=== PATIENT | female | born 1940 | race Caucasian/White ===

== ENCOUNTER → 2023-07-18 13:11 | Outpatient (REF) | payer MEDICARE, OTHER, SELFPAY ==
[2023-07-21 02:26] LABS: Calprotectin, Fecal 116 ug/g (<=49)
== END ==
LOC: REG 13:11
PROVIDERS: ATTENDING PHYSICIAN Internal Medicine Gastroenterology; FAMILY PHYSICIAN Internal Medicine
DX: D64.9 Anemia, unspecified (principal); K59.1 Functional diarrhea
CPT/HCPCS: 83993; 87045; 87046; 87324; 87328; 87329; 87427; 87449; 89055

== ENCOUNTER → 2023-08-16 10:41 | Outpatient (REF) | payer MEDICARE, OTHER, SELFPAY ==
[2023-08-16 11:37] LABS: % Eosinophils 3.8 % (0-6); % Immature Granulocytes 0.3 % (0-0.5); % Lymphocytes 23.9 % (20.5-51.1); % Monocytes 6.7 % (1.7-9.3); % Neutrophils 64.3 % (42.2-75.2); Absolute Basophils 0.1 10^3/uL (0-0.2); Absolute Eosinophils 0.4 10^3/uL (0-0.7); Absolute Lymphocytes 2.8 10^3/uL (1.2-3.4); Absolute Monocytes 0.8 10^3/uL (0.1-0.6); Absolute Neutrophils 7.4 10^3/uL (1.4-6.5); Hematocrit 37.2 % (37.0-47.0); Mean Corp Hgb Conc. 32.3 g/dL (33.0-37.0); Mean Corpuscular Volume 86.7 fL (81.0-99.0); Mean Platelet Volume 9.3 fL (7.4-10.4); Nucleated Red Blood Cells % 0 %; Platelet Count 572 10^3/uL (130-400); Red Blood Cell Count 4.29 10^6/uL (4.20-5.40); Red Cell Dist. Width 15.8 % (11.5-14.5); White Blood Cell Count 11.5 10^3/uL (4.8-10.8)
[2023-08-16 12:00] LABS: ALT (SGPT) 13 U/L (0-35); AST (SGOT) 19 U/L (14-36); Albumin 4.1 g/dl (3.5-5.0); Alkaline Phosphatase 90 U/L (38-126); Blood Urea Nitrogen 8 mg/dl (7-17); Carbon Dioxide 25 mmol/L (22-30); Chloride 106 mmol/L (98-107); Glucose 103 mg/dl (70-99); Potassium 4.5 mmol/L (3.5-5.1); Sodium 140 mmol/L (135-145); Total Bilirubin 0.6 mg/dl (0.2-1.3); Total Cholesterol 277 mg/dl (50-199); Triglyceride 160 mg/dl (10-149); Very Low Density Lipoprotein 32 mg/dl (0-30); eGFR > 60.00
[2023-08-16 12:18] LABS: HDL Cholesterol 169 mg/dl; LDL Cholesterol, Calculated 76 mg/dl
[2023-08-16 12:23] LABS: Glycohemoglobin (HgbA1c) 6.7 % (4.0-5.6)
[2023-08-16 12:30] LABS: TSH Reflex To Free T4 2.12 uIU/ml (0.47-4.68)
== END ==
LOC: REG 10:41
PROVIDERS: ATTENDING PHYSICIAN Internal Medicine
DX: I10 Essential (primary) hypertension (principal); E11.59 Type 2 diabetes mellitus with other circulatory complications; E78.89 Other lipoprotein metabolism disorders; E78.00 Pure hypercholesterolemia, unspecified
CPT/HCPCS: 36415; 80053; 80061; 83036; 84443; 85025

== ENCOUNTER → 2023-08-25 07:54 | Outpatient (REF) | payer MEDICARE, OTHER, SELFPAY | LOC: RCS 07:54 | PROVIDERS: ATTENDING PHYSICIAN Registered Nurse; FAMILY PHYSICIAN Internal Medicine; REFERRING PHYSICIAN Physician Assistant | DX: R60.0 Localized edema (principal); I25.10 Atherosclerotic heart disease of native coronary artery without angina pectoris; I10 Essential (primary) hypertension; I35.1 Nonrheumatic aortic (valve) insufficiency | CPT/HCPCS: 93306 ==

== ENCOUNTER 2023-09-09 06:49 | Emergency (ER) | payer MEDICARE, OTHER, SELFPAY ==
[2023-09-09 06:49] VITALS: BMI 20.5
[2023-09-09 06:50] VITALS: BP 177/78
[2023-09-09 07:00] VITALS: BP 140/115
--- NOTE | 2023-09-09 07:25 | ED.MUSCINJ ---
HPI-Injury
General
Chief Complaint: Musculo-Skeletal Complaint
Source: patient
Exam Limitations: none
Time Seen by Provider: 09/09/23 07:08
History of Present Illness-Injury
Initial Injury comments:
83-year-old female presents with 3 nights worth of increasing pain to the right lateral hip into the thigh. She notes a chronic numbness into the foot. She has a history of right hip replacement done about 6 months ago. She denies any injury.
She took a tramadol which did not help at all. No perianal anesthesia. No bowel or bladder dysfunction fevers. She states she is concerned about a blood clot. She denies chest pain or shortness of breath. She is not anticoagulated
Past History
Past History
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
irritable bowel syndrome, osteoporosis, DVT,)
ED Past Surgical History: Bowel resection (colon resection for diverticulitis), Cardiac ( stent placement in March 2003), Gynecological (Hysterectomy) and Orthopedic (Left wrist plate in 2003)
Patient has exhibited threatening behavior?: No
PSI?: No
Social History
Tobacco: Non-smoker
Alcohol: Daily (Wine one glasses)
Drug: None
Personal:
Living: alone
Employment: Retired
Family History
Family History: Other (Noncontributory)
Phy Exam
Physical Exam
Physical Exam:
General: Well-appearing female no acute respiratory distress HEENT: Normocephalic atraumatic
Heart: Regular rate and rhythm no murmurs
Lungs: Clear no wheeze or rales
Musculoskeletal exam: Tenderness is noted over the anterior lateral right thigh approximately. No deformities. She has increased pain with internal/external rotation of the hip.
Vascular: 2+ dorsalis pedis pulse right foot
Neurologic: Good sensation light touch
Injury Course
Orders/Labs/Results
Orders:
Orders
09/09/23 07:24
CR Hip - RT w/wo Pel 2-3 Vw* Urgent
Comment:
Reason For Exam: pain
Include a pelvis x-ray?: Yes
Venous Doppler Lwr Ext Rt [US Periph Venous LOWER Ext RT] Urgent
Comment:
Reason For Exam: pain in leg
09/09/23 10:57
Hydrocodone 5/APAP 325 [Hawkins 5/325] 1 tablet PO NOW STA
Prednisone [Deltasone] 50 mg PO NOW STA
MDM/Problems Addressed
Differential Diagnosis Includes:
Patient presents with pain to the right hip and thigh. Differential could include strain versus bursitis versus fracture versus dislocation. Patient in bed DVT. Clinic suspicion of DVT is low however we will order ultrasound. X-ray of the pelvis
pending as well.
Chronic conditions affecting care: CAD and Previous abdomnial surgery
Acute Exacerbation and/or Progression of Chronic Illness:
Chronic numbness to the leg, consider radiculopathy
*Critical Care Note
Total Time (30-74mins, 75-104mins- exclusive of procedures): Not Applicable
Update Note
Update Note:
Ultrasound leg negative for DVT. X-ray of right hip negative. Suspect radiculopathy as source of pain. Patient was using tramadol at home without relief. Prescribed prednisone and a limited supply of hydrocodone for pain. She will be advised
follow-up with the family doctor.
ED Attending Note
-
Portions of this chart may have been created with voice recognition software.� Occasional wrong word or��sound alike� substitutions may have occurred due to the inherent limitations of voice recognition software.
Discharge Plan
Departure
Patient Disposition: Home (Routine Discharge)
Date of Disposition: 09/09/23
Time of Disposition: 11:40
Patient with high blood pressure during this ER visit?: No
Discharge Problem:
Acute lumbar radiculopathy
Instructions: Muscle and Bone Pain (DC)
Prescriptions:
New
prednisone 10 mg Tablet
See Rx Instructions .ROUTE .COMPLEX Qty: 30 0RF
Rx Instructions:
Take By Mouth:
40 mg daily x3 days, 30 mg daily x3 days,
20 mg daily x3 days, 10 mg daily x3 days.
hydrocodone-acetaminophen 5-325 mg tablet
1 tab PO Q8H PRN (Reason: Pain) Qty: 10 0RF
No Action
atorvastatin 40 MG tablet
40 mg PO QPM
aspirin 81 MG tablet,chewable
81 mg PO QPM
Hold Instructions: Resume on 06/12/22.
metoprolol tartrate 25 mg tablet
12.5 mg PO BID Qty: 60 6RF
Atrovent HFA 17 mcg/actuation HFA aerosol inhaler
2 puff inhalation BID
Saccharomyces boulardii 250 mg Capsule
250 mg PO DAILY Qty: 1 0RF
oxycodone 5 mg capsule
5 mg PO Q6H PRN (Reason: moderate-severe paibn) Qty: 1 0RF
Citrucel 500 mg tablet
500 mg PO BID PRN (Reason: constipation) Qty: 1 0RF
acetaminophen [Tylenol] 325 mg Tablet
650 mg PO QID Qty: 0 0RF
diazepam [Valium] 5 mg Tablet
2.5 mg PO BID PRN (Reason: Anxiety) Qty: 0 0RF
Rx Instructions:
do not take within 6 hours of opioid
Atrovent HFA 17 mcg/actuation Hfa Aerosol Inhaler
2 puff inhalation R BID@0800,1600 Qty: 12.9 0RF
docusate sodium 100 mg Capsule
100 mg PO DAILY Qty: 30 0RF
calcium polycarbophil [Fiber-Tabs] 625 mg Tablet
625 mg PO BIDPRN PRN (Reason: CONSTIPATION) Qty: 30 0RF
lidocaine 4 % Adhesive Patch,Medicated
1 patch topical DAILY Qty: 30 0RF
polyethylene glycol 3350 [HealthyLax] 17 gram Powder In Packet
17 g PO DAILY Qty: 30 0RF
pantoprazole 20 mg Tablet,Delayed Release (Dr/Ec)
20 mg PO DAILY Qty: 30 0RF
multivitamin with folic acid [Tab-A-Tiffany] 400 mcg Tablet
1 tab PO DAILY Qty: 30 0RF
acetaminophen [Pain Relief ES (acetaminophen)] 500 mg Tablet
1,000 mg PO TIDPRN PRN (Reason: mild pain) Qty: 30 0RF
Referrals:
Florentino Castaneda MD [Active] -
Margarita Key MD [Family Provider] -
Activity Restrictions/Additional Instructions:
Use medicine as directed. Please follow-up with your family doctor for further evaluation. Consider following up with pain management as listed on papers also
Interventions
Interventions:
*Risk Screen - Suicide Last Done: 09/09/23 06:51
*General Assessment Last Done: 09/09/23 06:50
*Neglect/Abuse Screening Last Done: 09/09/23 06:50
ED- Fall Risk Assessment Last Done: 09/09/23 06:51
ED-Musculoskeletal Assessment Last Done: 09/09/23 06:51
Discharge Date and Time
Print Language: TRINIDADIAN
[2023-09-09] MEDS: NORCO 5/325 1 TABLET PO (11:23)
[2023-09-09] MEDS: DELTASONE 50 MG PO (11:23)
[2023-09-09 11:52] VITALS: BP 115/71
== END 2023-09-09 12:36 | disposition home or self-care (01) ==
LOC: EMR 06:49
PROVIDERS: EMERGENCY PHYSICIAN Student in an Organized Health Care Education/Training Program; FAMILY PHYSICIAN Internal Medicine
DX: M54.16 Radiculopathy, lumbar region (principal); M79.604 Pain in right leg; I25.10 Atherosclerotic heart disease of native coronary artery without angina pectoris; E78.00 Pure hypercholesterolemia, unspecified; K57.92 Diverticulitis of intestine, part unspecified, without perforation or abscess without bleeding; K44.9 Diaphragmatic hernia without obstruction or gangrene; K58.9 Irritable bowel syndrome, unspecified; K90.0 Celiac disease; M81.0 Age-related osteoporosis without current pathological fracture; I25.2 Old myocardial infarction; Z79.82 Long term (current) use of aspirin; Z96.641 Presence of right artificial hip joint; Z95.5 Presence of coronary angioplasty implant and graft; Z87.01 Personal history of pneumonia (recurrent); Z86.718 Personal history of other venous thrombosis and embolism; Z98.0 Intestinal bypass and anastomosis status; Z88.1 Allergy status to other antibiotic agents; Z88.5 Allergy status to narcotic agent; Z88.0 Allergy status to penicillin; Z91.013 Allergy to seafood; Z88.8 Allergy status to other drugs, medicaments and biological substances; Z91.018 Allergy to other foods
CPT/HCPCS: 99284; 73502; 93971

== ENCOUNTER → 2023-11-16 08:44 | Outpatient (REF) | payer MEDICARE, OTHER, SELFPAY ==
[2023-11-16 09:56] LABS: % Basophils 1.4 % (0-2); % Eosinophils 3.3 % (0-6); % Immature Granulocytes 0.2 % (0-0.5); % Lymphocytes 24.3 % (20.5-51.1); % Monocytes 7.6 % (1.7-9.3); % Neutrophils 63.2 % (42.2-75.2); Absolute Basophils 0.1 10^3/uL (0-0.2); Absolute Eosinophils 0.3 10^3/uL (0-0.7); Absolute Lymphocytes 2.2 10^3/uL (1.2-3.4); Absolute Monocytes 0.7 10^3/uL (0.1-0.6); Absolute Neutrophils 5.8 10^3/uL (1.4-6.5); Hematocrit 41.2 % (37.0-47.0); Hemoglobin 13.4 g/dL (12.0-16.0); Mean Corp Hgb Conc. 32.5 g/dL (33.0-37.0); Mean Corpuscular Hgb 29.3 pg (27.0-31.0); Mean Platelet Volume 9.4 fL (7.4-10.4); Nucleated Red Blood Cells % 0 %; Platelet Count 582 10^3/uL (130-400); Red Blood Cell Count 4.58 10^6/uL (4.20-5.40); White Blood Cell Count 9.1 10^3/uL (4.8-10.8)
[2023-11-16 12:15] LABS: Glycohemoglobin (HgbA1c) 6.3 % (4.0-5.6)
[2023-11-16 13:02] LABS: ALT (SGPT) 16 U/L (0-35); AST (SGOT) 24 U/L (14-36); Albumin 4.6 g/dl (3.5-5.0); Alkaline Phosphatase 94 U/L (38-126); Blood Urea Nitrogen 12 mg/dl (7-17); Calcium 9.9 mg/dl (8.4-10.2); Carbon Dioxide 26 mmol/L (22-30); Chloride 103 mmol/L (98-107); Glucose 107 mg/dl (70-99); Potassium 4.8 mmol/L (3.5-5.1); Sodium 142 mmol/L (135-145); Total Bilirubin 0.6 mg/dl (0.2-1.3); Total Cholesterol 324 mg/dl (50-199); Total Protein 7.4 g/dl (6.3-8.2); Triglyceride 151 mg/dl (10-149); Very Low Density Lipoprotein 30 mg/dl (0-30); eGFR > 60.00
[2023-11-16 13:24] LABS: HDL Cholesterol 188 mg/dl; LDL Cholesterol, Calculated 106 mg/dl
== END ==
LOC: REG 08:44
PROVIDERS: ATTENDING PHYSICIAN Internal Medicine; OTHER PHYSICIAN Internal Medicine Cardiovascular Disease; REFERRING PHYSICIAN Internal Medicine Hematology & Oncology
DX: E78.5 Hyperlipidemia, unspecified (principal); R73.03 Prediabetes; I10 Essential (primary) hypertension; E11.59 Type 2 diabetes mellitus with other circulatory complications; E78.89 Other lipoprotein metabolism disorders; D72.9 Disorder of white blood cells, unspecified
CPT/HCPCS: 36415; 80053; 80061; 83036; 85025

== ENCOUNTER → 2023-11-23 16:46 | Outpatient (REF) | payer MEDICARE, OTHER, SELFPAY | LOC: PAVMRI 16:46 | PROVIDERS: ATTENDING PHYSICIAN Nurse Practitioner Acute Care; FAMILY PHYSICIAN Internal Medicine | DX: M21.371 Foot drop, right foot (principal) | CPT/HCPCS: 73721 ==

== ENCOUNTER → 2023-12-12 13:00 | Outpatient (REF) | payer MEDICARE, OTHER, SELFPAY ==
[2023-12-12 17:34] LABS: IgA 349 mg/dl (70-400)
[2023-12-14 10:47] LABS: tTG IgA Antibody 9.6 EU/ml (0-19); tTG IgG Antibody 12.3 EU/ml (0-19)
== END ==
LOC: REG 13:00
PROVIDERS: ATTENDING PHYSICIAN Nurse Practitioner Family; FAMILY PHYSICIAN Internal Medicine
DX: K90.0 Celiac disease (principal)
CPT/HCPCS: 36415; 82784; 83516; 86231

== ENCOUNTER → 2023-12-13 08:08 | Outpatient (REF) | payer MEDICARE, OTHER, SELFPAY | LOC: REG 08:08 | PROVIDERS: ATTENDING PHYSICIAN Nurse Practitioner Family; FAMILY PHYSICIAN Internal Medicine; REFERRING PHYSICIAN Internal Medicine Gastroenterology | DX: R19.7 Diarrhea, unspecified (principal) | CPT/HCPCS: 82653; 82705; 83993; 87045; 87046; 87328; 87329; 87427; 89055 ==

== ENCOUNTER 2023-12-31 09:18 | Emergency (ER) | payer MEDICARE, OTHER, SELFPAY ==
[2023-12-31 09:25] VITALS: BP 173/87
[2023-12-31 09:53] VITALS: BP 162/93
[2023-12-31 10:00] VITALS: BP 169/135
[2023-12-31 10:01] LABS: Urine Albumin Negative (Neg - Trace); Urine Bilirubin Negative (Negative); Urine Character Clear (Clear); Urine Color Yellow; Urine Glucose Negative (Negative); Urine Ketone Negative (Negative); Urine Leukocyte Trace (Negative); Urine Nitrite Negative (Negative); Urine Occult Blood Negative (Negative); Urine Urobilinogen Negative (Neg - 1+)
--- NOTE | 2023-12-31 10:03 | ED.GENMED ---
History of Present Illness
General
Chief Complaint: Abdominal Pain
Source: patient
Exam Limitations: none
Time Seen by Provider: 12/31/23 09:42
Nursing documentation reviewed up to this point in time: agreed with
History of Present Illness
History of Present Illness:
83 y/o F with h/o , CAD, VSD, celiac, divertic s/p partial colon resectino 12 years ago [facility]
here with 2-3 day sL sided abd pain radiating to L back
bloating, ocnstipation, firmer bm than usual
also with urinary frequency the past few days and mild discomfort
no h/o kidney stones/infection
usually moves bowels q2 dyas
hadn't had a normal BM in 4 so she tried senna and did go a little this morning, though she had more pain
nothing taken today for pain 08/21
occ gets sharp pain
Past History
Past History
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
irritable bowel syndrome, osteoporosis, DVT,)
ED Past Surgical History: Bowel resection (colon resection for diverticulitis), Cardiac ( stent placement in March 2003), Gynecological (Hysterectomy) and Orthopedic (Left wrist plate in 2003)
Patient has exhibited threatening behavior?: No
PSI?: No
Social History
Tobacco: Non-smoker
Alcohol: Daily (Wine one glasses)
Drug: None
Personal:
Living: alone
Employment: Retired
Family History
Family History: Other (Noncontributory)
Review of Systems
Review of Systems
Allergies reviewed?: Yes
All Other Systems: Not applicable
Phy Exam
Physical Exam
Physical Exam:
GENERAL: Alert , in no apparent distress
EYE: pupils equal and reactive
NECK: Supple
ENT: o/p clr, mmm.
CARDIAC: Regular rate and rhythm .
LUNGS: Clear breath sounds bilaterally, no acute respiratory distress, no wheezes/rales/rhonchi
ABDOMEN: Soft, mild distention, mild tenderness left upper quadrant, left flank, no r/g, no cvat, normal bowel sounds
NEUROLOGICAL: Alert and oriented, no focal neuro deficits
SKIN: Warm and dry, skin intact.
MUSCULOSKELETAL: No edema, well perfused. neg walter's sign
PSYCH: Normal and appropriate interaction.
Course
Orders/Labs/Results
Orders:
Orders
12/31/23 09:56
Urinalysis Reflex To Culture Urgent
Date Specimen was Collected: 12/31/23
Time Specimen was Collected: 09:53
Urine Microscopic Reflex Cult Urgent
12/31/23 09:59
Iohexol [Omnipaque] 50 ml .ROUTE .STK-MED ONE
12/31/23 10:01
Iohexol [Omnipaque] See Protocol PO NOW STA
Morphine Sulfate 2 mg IV NOW STA
12/31/23 10:02
CT Abd/pel W Iv And Oral Contr Urgent
Comment: colon resection 12 yr ago divertic
Reason For Exam: L abd pain, distension, constipation, back pain;
12/31/23 10:07
Complete Blood Count/With Diff Urgent
Comprehensive Metabolic Panel Urgent
Lipase Urgent
12/31/23 14:13
Dicyclomine HCl [Bentyl] 20 mg IM NOW STA
Sulfamethox./Trimethoprim Ds [Bactrim Ds 800 mg/160 mg] 1 tablet PO NOW STA
Abnormal Lab Results
12/31/23 12/31/23
09:56 10:07
WBC 13.1 H 10^3/uL
(4.8-10.8)
RDW 15.9 H %
(11.5-14.5)
Plt Count 569 H 10^3/uL
(130-400)
Abs Immat Gran (auto) 0.1 H 10^3/uL
(0-0.05)
Absolute Neuts (auto) 9.6 H 10^3/uL
(1.4-6.5)
Absolute Monos (auto) 0.8 H 10^3/uL
(0.1-0.6)
Immature Gran % 0.7 H %
(0-0.5)
Lymphocytes % 17.8 L %
(20.5-51.1)
Creatinine 0.5 L mg/dL
(0.6-1.0)
Glucose 119 H mg/dl
(70-99)
Leukocyte Esterase Rfl Trace A
(Negative)
Urine RBC 3-6 A /HPF
(0-2)
Urine Bacteria (Reflex) Few A
(Negative)
12/31/23 10:07
12/31/23 10:07
Vital Signs
Initial and Last Documented VS:
Initial Vital Signs
Temp Pulse Resp BP Pulse Ox
98.1 F 90 16 173/87 98
12/31/23 09:25 12/31/23 09:25 12/31/23 09:25 12/31/23 09:25 12/31/23 09:25
Last Documented Vital Signs
Temp Pulse Resp BP Pulse Ox
98.1 F 83 12 145/66 97
12/31/23 09:25 12/31/23 12:30 12/31/23 12:30 12/31/23 12:00 12/31/23 12:30
MDM/Problems Addressed
Differential Diagnosis Includes:
Diverticulitis, UTI, Theodore, kidney stone, bowel obstruction
MDM/Problems Addressed:
83-year-old female with history of a colon resection from diverticulitis in the past here with left lower quadrant pain that wraps around to her back. She is also had a slight increase in urinary frequency and a little bit of discomfort but
minimal. No fever or chills, no cough, no diarrhea. She still having stool output. On exam the patient did have some left upper quadrant tenderness and mild bloating but no significant CVA tenderness and does not appear toxic. She is afebrile.
Her white count is appreciated to be 13 with a left shift. Her lipase was normal. Her UA shows a few squamous cells but also white cells, trace leuks, few bacteria. Her CT scan does not show any significant findings to explain her pain. She does
have significant stool burden which I suppose could cause some left-sided upper abdominal pain into her back however after revisiting the idea of a urinary tract infection I felt it was worthwhile considering either waiting for antibiotics pending
the urine culture or initiating antibiotics. The more we talked she mentioned her urinary frequency, dysuria. With a leukocytosis with left shift was concern for missing an infection. I was also considering treating her for early diverticulitis
and she does have extensive diverticuli despite that she has not had any CT evidence of diverticulitis. She does have a lot of allergies making it difficult to choose antibiotic that would fit to treat both issues. Floris that Bactrim would
potentially be the best choice. She will be instructed to follow-up with her family doctor. Return precautions given
*Critical Care Note
Total Time (30-74mins, 75-104mins- exclusive of procedures): Not Applicable
ED Attending Note
-
Portions of this chart may have been created with voice recognition software.� Occasional wrong word or��sound alike� substitutions may have occurred due to the inherent limitations of voice recognition software.
Discharge Plan
Departure
Patient Disposition: Home (Routine Discharge)
Date of Disposition: 12/31/23
Time of Disposition: 14:25
Patient with high blood pressure during this ER visit?: Yes
Condition: Fair
Covid-19: Not Applicable
Discharge Problem:
Abdominal pain, Acute constipation, UTI (urinary tract infection)
Instructions: Clear Liquid Diet, Urinary tract infection - Discharge instructions, Abdominal Pain
Prescriptions:
New
sulfamethoxazole-trimethoprim [Bactrim DS] 800-160 mg tablet
1 tab PO BID Qty: 14 0RF
dicyclomine 20 mg tablet
20 mg PO BID PRN (Reason: abdominal pain) Qty: 10 0RF
No Action
atorvastatin 40 MG tablet
40 mg PO QPM
aspirin 81 MG tablet,chewable
81 mg PO QPM
metoprolol tartrate 25 mg tablet
12.5 mg PO BID Qty: 60 6RF
Atrovent HFA 17 mcg/actuation HFA aerosol inhaler
2 puff inhalation BID
Saccharomyces boulardii 250 mg Capsule
250 mg PO DAILY Qty: 1 0RF
oxycodone 5 mg capsule
5 mg PO Q6H PRN (Reason: moderate-severe paibn) Qty: 1 0RF
Citrucel 500 mg tablet
500 mg PO BID PRN (Reason: constipation) Qty: 1 0RF
acetaminophen [Tylenol] 325 mg Tablet
650 mg PO QID Qty: 0 0RF
diazepam [Valium] 5 mg Tablet
2.5 mg PO BID PRN (Reason: Anxiety) Qty: 0 0RF
Rx Instructions:
do not take within 6 hours of opioid
prednisone 10 mg Tablet
See Rx Instructions .ROUTE .COMPLEX Qty: 30 0RF
Rx Instructions:
Take By Mouth:
40 mg daily x3 days, 30 mg daily x3 days,
20 mg daily x3 days, 10 mg daily x3 days.
hydrocodone-acetaminophen 5-325 mg tablet
1 tab PO Q8H PRN (Reason: Pain) Qty: 10 0RF
Atrovent HFA 17 mcg/actuation Hfa Aerosol Inhaler
2 puff inhalation R BID@0800,1600 Qty: 12.9 0RF
docusate sodium 100 mg Capsule
100 mg PO DAILY Qty: 30 0RF
calcium polycarbophil [Fiber-Tabs] 625 mg Tablet
625 mg PO BIDPRN PRN (Reason: CONSTIPATION) Qty: 30 0RF
lidocaine 4 % Adhesive Patch,Medicated
1 patch topical DAILY Qty: 30 0RF
polyethylene glycol 3350 [HealthyLax] 17 gram Powder In Packet
17 g PO DAILY Qty: 30 0RF
pantoprazole 20 mg Tablet,Delayed Release (Dr/Ec)
20 mg PO DAILY Qty: 30 0RF
multivitamin with folic acid [Tab-A-Tiffany] 400 mcg Tablet
1 tab PO DAILY Qty: 30 0RF
acetaminophen [Pain Relief ES (acetaminophen)] 500 mg Tablet
1,000 mg PO TIDPRN PRN (Reason: mild pain) Qty: 30 0RF
Referrals:
Margarita Key MD [Family Provider] - Follow up in 2-3 days
Activity Restrictions/Additional Instructions:
Your CAT scan shows that you have a lot of stool in your colon but there were no other bowel findings like diverticulitis. You do have diverticulosis present. Your anastomosis looks good and there is no bowel obstruction or ileus. Not sure how to
explain your pain. It is possible that you have an early bladder infection, you have a slight white count elevation and some signs in your urine that there may be an infection. Given your new urinary symptoms we discussed treating you with Bactrim
twice a day for 7 days. Try clear liquid diet today and then advance as tolerated. You can also try MiraLAX twice a day for 2 or 3 days in a row to help you move your bowels. I gave you a dose of Bentyl which is a medication for crampy abdominal
pain. But just try Tylenol for pain at home. If you feel like the Bentyl did help you can try it twice a day as needed. Follow-up with your family doctor as well as your GI doctor. Do not hesitate to return for fever, vomiting, worsening
abdominal pain, inability to urinate or any concerns
Interventions
Interventions:
*Risk Screen - Suicide Last Done: 12/31/23 09:57
*General Assessment Last Done: 12/31/23 10:14
*Neglect/Abuse Screening Last Done: 12/31/23 09:57
ED- Fall Risk Assessment Last Done: 12/31/23 14:32
*ED COVID-19 Vaccine History Last Done: 12/31/23 10:14
*Nursing Disposition Last Done: 12/31/23 14:32
DU-Hfaixj-Mszbqjkdig Assessment Last Done: 12/31/23 09:53
Discharge Date and Time
Discharge Date/Time: 12/31/23 14:32
Print Language: IRISH
[2023-12-31] MEDS: OMNIPAQUE 50 ML PO (10:06)
[2023-12-31] MEDS: MORPHINE SULFATE 2 MG IV (10:11)
[2023-12-31 10:13] LABS: % Basophils 0.8 % (0-2); % Eosinophils 0.9 % (0-6); % Immature Granulocytes 0.7 % (0-0.5); % Lymphocytes 17.8 % (20.5-51.1); % Neutrophils 73.8 % (42.2-75.2); Absolute Basophils 0.1 10^3/uL (0-0.2); Absolute Eosinophils 0.1 10^3/uL (0-0.7); Absolute Immature Granulocytes 0.1 10^3/uL (0-0.05); Absolute Lymphocytes 2.3 10^3/uL (1.2-3.4); Absolute Monocytes 0.8 10^3/uL (0.1-0.6); Absolute Neutrophils 9.6 10^3/uL (1.4-6.5); Hematocrit 40.2 % (37.0-47.0); Hemoglobin 13.4 g/dL (12.0-16.0); Mean Corp Hgb Conc. 33.3 g/dL (33.0-37.0); Mean Corpuscular Hgb 28.7 pg (27.0-31.0); Mean Corpuscular Volume 86.1 fL (81.0-99.0); Nucleated Red Blood Cells % 0 %; Platelet Count 569 10^3/uL (130-400); Red Blood Cell Count 4.67 10^6/uL (4.20-5.40); Red Cell Dist. Width 15.9 % (11.5-14.5); White Blood Cell Count 13.1 10^3/uL (4.8-10.8)
[2023-12-31 10:20] LABS: Urine Bacteria Few (Negative)
[2023-12-31 11:00] VITALS: BP 170/74
[2023-12-31 11:27] LABS: ALT (SGPT) 28 U/L (0-35); AST (SGOT) 27 U/L (14-36); Albumin 4.3 g/dl (3.5-5.0); Alkaline Phosphatase 73 U/L (38-126); Blood Urea Nitrogen 10 mg/dl (7-17); Calcium 9.5 mg/dl (8.4-10.2); Carbon Dioxide 24 mmol/L (22-30); Chloride 104 mmol/L (98-107); Estimated Creatinine Clearance 52 ml/min; Glucose 119 mg/dl (70-99); Potassium 4.4 mmol/L (3.5-5.1); Sodium 140 mmol/L (135-145); Total Bilirubin 0.4 mg/dl (0.2-1.3); Total Protein 7.4 g/dl (6.3-8.2); eGFR > 60.00
[2023-12-31 11:48] LABS: Lipase 63 U/L (23-300)
[2023-12-31 12:00] VITALS: BP 145/66
[2023-12-31] MEDS: BACTRIM DS 800 MG/160 MG 1 TABLET PO (14:18)
[2023-12-31] MEDS: BENTYL 20 MG IM (14:18)
== END 2023-12-31 14:32 | disposition home or self-care (01) ==
LOC: EMR 09:18
PROVIDERS: Physician Assistant; EMERGENCY PHYSICIAN Emergency Medicine; FAMILY PHYSICIAN Internal Medicine
DX: K59.09 Other constipation (principal); N39.0 Urinary tract infection, site not specified; E78.00 Pure hypercholesterolemia, unspecified; I25.10 Atherosclerotic heart disease of native coronary artery without angina pectoris; I25.2 Old myocardial infarction; Z86.718 Personal history of other venous thrombosis and embolism; Z90.49 Acquired absence of other specified parts of digestive tract
CPT/HCPCS: 96374; 96372; 99284; 74177; 80053; 81003; 81015; 83690; 85025; Q9967

== ENCOUNTER 2024-01-04 05:18 | Emergency (ER) | payer MEDICARE, OTHER, SELFPAY ==
[2024-01-04 05:20] VITALS: BP 157/74; BMI 22.2
[2024-01-04 05:47] LABS: % Eosinophils 1.4 % (0-6); % Immature Granulocytes 0.4 % (0-0.5); % Lymphocytes 24.3 % (20.5-51.1); % Neutrophils 64.9 % (42.2-75.2); Absolute Basophils 0.1 10^3/uL (0-0.2); Absolute Eosinophils 0.1 10^3/uL (0-0.7); Absolute Lymphocytes 2.4 10^3/uL (1.2-3.4); Absolute Monocytes 0.8 10^3/uL (0.1-0.6); Absolute Neutrophils 6.3 10^3/uL (1.4-6.5); Hematocrit 39.6 % (37.0-47.0); Hemoglobin 13.3 g/dL (12.0-16.0); Mean Corp Hgb Conc. 33.6 g/dL (33.0-37.0); Mean Corpuscular Hgb 28.7 pg (27.0-31.0); Mean Corpuscular Volume 85.5 fL (81.0-99.0); Mean Platelet Volume 8.8 fL (7.4-10.4); Nucleated Red Blood Cells % 0 %; Platelet Count 526 10^3/uL (130-400); Red Blood Cell Count 4.63 10^6/uL (4.20-5.40); Red Cell Dist. Width 15.6 % (11.5-14.5); White Blood Cell Count 9.7 10^3/uL (4.8-10.8)
[2024-01-04 06:00] VITALS: BP 145/65
[2024-01-04] MEDS: NSS 1000 IV (06:30)
[2024-01-04] MEDS: MORPHINE SULFATE 4 MG IV ×2 (06:31→08:41)
--- NOTE | 2024-01-04 06:37 | ED.GENMED ---
History of Present Illness
General
Chief Complaint: Abdominal Pain
Time Seen by Provider: 01/04/24 06:06
History of Present Illness
History of Present Illness:
83-year-old female with history of CAD status post stenting, hypertension, hyperlipidemia, history of diverticulitis requiring bowel resection presenting to the emergency department for worsening abdominal pain. Patient reports for the past week
she has had left sided abdominal pain with radiation to her back. She denies associated nausea or vomiting. She reports that she has been having normal bowel movements. Denies any pain with urination. Reports that she was seen in the hospital on
Tuesday, 12/30. On review of EMR, patient had normal CT abdominal imaging, without clear etiology of patient's pain. Patient was started on Bentyl. Notes that she has not been taking this medication. CT scan did show that she was constipated,
however again patient notes that she has been having normal bowel movements. She was thought to maybe have a urinary tract infection, was started on Bactrim, however notes that since she is not having urinary symptoms, has not been taking it.
Denies fever. Denies additional acute medical complaints.
Past History
Past History
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
irritable bowel syndrome, osteoporosis, DVT,)
ED Past Surgical History: Bowel resection (colon resection for diverticulitis), Cardiac ( stent placement in March 2003), Gynecological (Hysterectomy) and Orthopedic (Left wrist plate in 2003)
Patient has exhibited threatening behavior?: No
PSI?: No
Social History
Tobacco: Non-smoker
Alcohol: Daily (Wine one glasses)
Drug: None
Personal:
Living: alone
Employment: Retired
Family History
Family History: Other (Noncontributory)
Phy Exam
Physical Exam
Physical Exam:
General: Well-appearing, no clinical signs of dehydration, nontoxic and in no acute distress
HEENT: protecting airway
Neck: appears supple
CV: Normal heart rate, regular rhythm
Resp: No accessory muscle use, no increased work of breathing
Abd: Soft and non-distended, focal tenderness to the left lower quadrant without rebound or guarding. No CVA tenderness
Extremities: No deformities, no swelling
Neuro: alert, no focal neurologic deficit
: deferred
Rectal: deferred
Psych: Normal affect
Skin: Intact
Course
Orders/Labs/Results
Orders:
Orders
01/04/24 05:34
Complete Blood Count/With Diff Urgent
01/04/24 06:19
0.9% Sodium Chloride 1000 ml [Nss] 1,000 ml IV BOLUS
Morphine Sulfate 4 mg IV NOW STA
01/04/24 06:20
CT Abd/pelvis W Iv Cont Urgent
Comment:
Reason For Exam: worsening LLQ pain
01/04/24 06:40
Comprehensive Metabolic Panel Urgent
Comment: REDRAW
Lipase Urgent
01/04/24 07:39
Urinalysis Reflex To Culture Urgent
Date Specimen was Collected: 01/04/24
Time Specimen was Collected: 07:38
Urine Microscopic Reflex Cult Urgent
01/04/24 08:12
Morphine Sulfate 4 mg IV NOW STA
01/04/24 09:24
EKG [Electrocardiogram (*1)] Urgent
Reason for Study: Abdominal Pain
EKG- Treatment ONCE
Ketorolac [Toradol] 30 mg IV NOW STA
Abnormal Lab Results
01/04/24 01/04/24 01/04/24
05:34 06:40 07:39
RDW 15.6 H %
(11.5-14.5)
Plt Count 526 H 10^3/uL
(130-400)
Absolute Monos (auto) 0.8 H 10^3/uL
(0.1-0.6)
Carbon Dioxide 21 L mmol/L
(22-30)
Glucose 120 H mg/dl
(70-99)
Leukocyte Esterase Rfl Trace A
(Negative)
01/04/24 05:34
01/04/24 06:40
Vital Signs
Initial and Last Documented VS:
Initial Vital Signs
Temp Pulse Resp BP Pulse Ox
98.0 F 77 18 157/74 98
01/04/24 05:20 01/04/24 05:20 01/04/24 05:20 01/04/24 05:20 01/04/24 05:20
Last Documented Vital Signs
Temp Pulse Resp BP Pulse Ox
98.0 F 85 16 153/78 98
01/04/24 05:20 01/04/24 07:27 01/04/24 07:27 01/04/24 08:42 01/04/24 07:27
MDM/Problems Addressed
MDM/Problems Addressed:
83-year-old female with history of prior diverticulitis requiring bowel resection presenting to the emergency department for worsening abdominal pain. Vital signs on arrival significant for mild hypertension.
On exam patient is well-appearing, no acute distress, nontoxic. She does have reproducible tenderness to the left lower quadrant without rebound or guarding. On review of EMR, imaging and laboratory analysis reviewed from prior visit 12/30. CT at
that time without clear etiology to patient's pain. She notes that her pain has been worsening. Given her prior history of bowel issues, will repeat CT imaging to ensure no interval change or development of bowel inflammation or infection.
Laboratory analysis repeated prior to my assessment. Patient had previously had a leukocytosis which is since resolved. Morphine administered for pain
09:25 -patient's labs are unremarkable. No leukocytosis. CT of the abdomen and pelvis without findings to explain patient's pain. Does note gallstones with sludge, however patient without right-sided abdominal pain. Urine without sign of
infection. Patient reports still having.. Patient offered admission for intractable pain, would prefer to go home. Will prescribe Toradol. Patient also notes that she has had 2 heart attacks in the past, which were received only by nausea.
Given her history, will screen with EKG. Otherwise feel stable for discharge. Advise close interval follow-up with her primary care doctor. Return precautions discussed.
*Critical Care Note
Total Time (30-74mins, 75-104mins- exclusive of procedures): Not Applicable
ED Attending Note
-
Portions of this chart may have been created with voice recognition software.� Occasional wrong word or��sound alike� substitutions may have occurred due to the inherent limitations of voice recognition software.
Discharge Plan
Departure
Patient Disposition: Home (Routine Discharge)
Date of Disposition: 01/04/24
Time of Disposition: 10:16
Patient with high blood pressure during this ER visit?: No
Condition: Good
Discharge Problem:
Abdominal pain
Instructions: Abdominal Pain
Prescriptions:
New
ketorolac 10 mg tablet
10 mg PO Q8H 4 Days Qty: 12 0RF
No Action
atorvastatin 40 MG tablet
40 mg PO QPM
aspirin 81 MG tablet,chewable
81 mg PO QPM
metoprolol tartrate 25 mg tablet
12.5 mg PO BID Qty: 60 6RF
Atrovent HFA 17 mcg/actuation HFA aerosol inhaler
2 puff inhalation BID
Saccharomyces boulardii 250 mg Capsule
250 mg PO DAILY Qty: 1 0RF
oxycodone 5 mg capsule
5 mg PO Q6H PRN (Reason: moderate-severe paibn) Qty: 1 0RF
Citrucel 500 mg tablet
500 mg PO BID PRN (Reason: constipation) Qty: 1 0RF
acetaminophen [Tylenol] 325 mg Tablet
650 mg PO QID Qty: 0 0RF
diazepam [Valium] 5 mg Tablet
2.5 mg PO BID PRN (Reason: Anxiety) Qty: 0 0RF
Rx Instructions:
do not take within 6 hours of opioid
prednisone 10 mg Tablet
See Rx Instructions .ROUTE .COMPLEX Qty: 30 0RF
Rx Instructions:
Take By Mouth:
40 mg daily x3 days, 30 mg daily x3 days,
20 mg daily x3 days, 10 mg daily x3 days.
hydrocodone-acetaminophen 5-325 mg tablet
1 tab PO Q8H PRN (Reason: Pain) Qty: 10 0RF
sulfamethoxazole-trimethoprim [Bactrim DS] 800-160 mg tablet
1 tab PO BID Qty: 14 0RF
dicyclomine 20 mg tablet
20 mg PO BID PRN (Reason: abdominal pain) Qty: 10 0RF
Atrovent HFA 17 mcg/actuation Hfa Aerosol Inhaler
2 puff inhalation R BID@0800,1600 Qty: 12.9 0RF
docusate sodium 100 mg Capsule
100 mg PO DAILY Qty: 30 0RF
calcium polycarbophil [Fiber-Tabs] 625 mg Tablet
625 mg PO BIDPRN PRN (Reason: CONSTIPATION) Qty: 30 0RF
lidocaine 4 % Adhesive Patch,Medicated
1 patch topical DAILY Qty: 30 0RF
polyethylene glycol 3350 [HealthyLax] 17 gram Powder In Packet
17 g PO DAILY Qty: 30 0RF
pantoprazole 20 mg Tablet,Delayed Release (Dr/Ec)
20 mg PO DAILY Qty: 30 0RF
multivitamin with folic acid [Tab-A-Tiffany] 400 mcg Tablet
1 tab PO DAILY Qty: 30 0RF
acetaminophen [Pain Relief ES (acetaminophen)] 500 mg Tablet
1,000 mg PO TIDPRN PRN (Reason: mild pain) Qty: 30 0RF
Referrals:
Margarita Key MD [Family Provider] -
Activity Restrictions/Additional Instructions:
You were seen in the emergency department for abdominal pain
You were found to have normal laboratory analysis, urinalysis and CT abdominal imaging. A CT of your abdomen did show gallstones, however unclear etiology of your left-sided pain. Please continue to follow-up with your primary care doctor. You
were prescribed Toradol for pain. Do not use this medication with ibuprofen or naproxen
Return to the emergency department for any worsening of your symptoms, or any development of chest pain, difficulty breathing, abdominal pain with persistent vomiting and inability to tolerate food or liquid by mouth (concern for dehydration),
weakness, headache or confusion, fever greater than 100.4, or any additional symptoms that are concerning to you.
Thank you for choosing [facility].
Interventions
Interventions:
*Risk Screen - Suicide Last Done: 01/04/24 05:20
*General Assessment Last Done: 01/04/24 05:20
*Neglect/Abuse Screening Last Done: 01/04/24 05:20
*ED COVID-19 Vaccine History Last Done: 01/04/24 05:20
GS-Qxliim-Dpldqymrat Assessment Last Done: 01/04/24 05:25
Discharge Date and Time
Print Language: PORTUGUESE
[2024-01-04 06:59] LABS: ALT (SGPT) 23 U/L (0-35); AST (SGOT) 23 U/L (14-36); Albumin 3.8 g/dl (3.5-5.0); Alkaline Phosphatase 67 U/L (38-126); Blood Urea Nitrogen 11 mg/dl (7-17); Carbon Dioxide 21 mmol/L (22-30); Chloride 106 mmol/L (98-107); Estimated Creatinine Clearance 55 ml/min; Glucose 120 mg/dl (70-99); Lipase 135 U/L (23-300); Potassium 4.3 mmol/L (3.5-5.1); Sodium 137 mmol/L (135-145); Total Bilirubin 0.4 mg/dl (0.2-1.3); Total Protein 6.4 g/dl (6.3-8.2); eGFR > 60.00
[2024-01-04 07:00] VITALS: BP 145/64
[2024-01-04 07:58] LABS: Urine Albumin Negative (Neg - Trace); Urine Bilirubin Negative (Negative); Urine Character Clear (Clear); Urine Color Yellow; Urine Glucose Negative (Negative); Urine Ketone Negative (Negative); Urine Leukocyte Trace (Negative); Urine Nitrite Negative (Negative); Urine Occult Blood Negative (Negative); Urine Urobilinogen Negative (Neg - 1+)
[2024-01-04 08:42] VITALS: BP 153/78
[2024-01-04 08:58] LABS: Urine Mucus Few
[2024-01-04 08:59] LABS: Urine Amorphous Seen; Urine Hyaline Cast 0-2 /LPF (0-2); Urine Squamous Cell 0-2 /LPF (Few); Urine Urothelial Cell 0-2 /LPF (FEW)
[2024-01-04 09:01] LABS: Urine Red Blood Cell 0-2 /HPF (0-2)
[2024-01-04] MEDS: TORADOL 30 MG IV (09:36)
[2024-01-04 10:52] VITALS: BP 136/74
== END 2024-01-04 10:54 | disposition home or self-care (01) ==
LOC: EMR 05:18
PROVIDERS: Student in an Organized Health Care Education/Training Program; EMERGENCY PHYSICIAN Student in an Organized Health Care Education/Training Program; FAMILY PHYSICIAN Internal Medicine
DX: R10.9 Unspecified abdominal pain (principal); I10 Essential (primary) hypertension; E78.00 Pure hypercholesterolemia, unspecified; K57.30 Diverticulosis of large intestine without perforation or abscess without bleeding
CPT/HCPCS: 99285; 96374; 96375; 96376; 96361; 74177; 80053; 81003; 81015; 83690; 85025; 93005; Q9967

== ENCOUNTER 2024-01-08 14:08 | Inpatient (IN) | payer MEDICARE, OTHER, SELFPAY ==
[2024-01-06 09:57] VITALS: BP 156/81
--- NOTE | 2024-01-06 10:16 | ED.GENMED ---
History of Present Illness
General
Chief Complaint: Abdominal Pain
Time Seen by Provider: 01/06/24 10:16
History of Present Illness
History of Present Illness:
TIME OF INITIAL ENCOUNTER: 10:15 AM
HPI:
The patient returns due to ongoing abdominal pain. She was seen here 12/31/2023 and 01/04/2024. She called her primary care doctor who told her to come back in here for more testing. The patient has intermittent pain. Although she was concerned
about the possibility of a 'blockage' she has no vomiting and only minimal nausea and no 'blockages' were seen on CTs.
EXAM:
GENERAL: Well appearing but in mild distress
HEENT: Moist oral mucosa
CARDIOVASCULAR: No murmurs, normal heart rate, regular rhythm, No chest wall tenderness
PULMONARY: No respiratory distress, breath sounds are clear and equal
ABDOMEN: Soft with no peritoneal signs, mild left-sided abdominal tenderness
NEUROLOGIC: Excellent strength all extremities, no coordination deficits
PSYCHIATRIC: Appropriate mental status, normal insight and judgement
EXTREMITIES: Nontender, no edema, moves all extremities equally
SKIN: No rash, no lesions
NUMBER AND COMPLEXITY OF PROBLEMS ADDRESSED AT THE ENCOUNTER
� Chronic conditions affecting care: CAD, high blood pressure, diverticulitis
� Acute Exacerbation and/or Progression of Chronic Illness: This is a new ongoing problem for the past 2 weeks
� Differential Diagnosis includes: Diverticulitis, colitis, musculoskeletal etiology,
AMOUNT AND/OR COMPLEXITY OF DATA TO BE REVIEWED AND ANALYZED
� I performed an independent evaluation of and my interpretation is:
EKG: Sinus 90, left axis deviation, inferior Q waves
CT:
X-rays:
Laboratory Studies: White count 12.6, hemoglobin 13.8, chemistries unremarkable including LFTs and lipase, urinalysis shows 2+ leukocyte esterase however number of white cells is low
Other:
� Review of other/old records: On 12/30, white count was 13.1, on 01/03 white count was 9.7. On 12/30, CT scan showed large volume of feces. 01/03, CT showed diverticulosis with no inflammation; gallstones were noted.
Urinalysis from the other day showed no sign of infection.
� Clinical information was obtained by an independent historian: None needed
� Prescriptions/Medications Considered but not given:
� Further testing considered but not performed: Considered CT of the abdomen pelvis however the patient has already had 2 CAT scans in the recent past.
RISK OF COMPLICATIONS AND/OR MORBIDITY OR MORTALITY OF PATIENT MANAGEMENT
� Social determinants of health affecting care: Lives at home
� Discussion with other providers: Discussed case with Dr. Julian
� Escalation of care including admission/observation vs risk of discharge considered: The patient returns a third time with left-sided abdominal discomfort for the past 2 weeks. She has had 2 CTs in the recent past. The first
of which showed increase stool but since then she has been having diarrhea. Dr. Julian suggested checking abdominal x-ray to evaluate stool burden however the patient refused. The patient feels that she needs a colonoscopy. I spoke to
Eliel again. She apparently had a colonoscopy with Dr. Queen in 2021. I spoke to the hospitalist regarding possible further observation however there has been no clear indication to keep her in the hospital. Hospitalist request ED GI
consultation. We did try lidocaine patch which has not really helped.
ANY OTHER UPDATES:
1:15 PM: Lidocaine patch has not helped�will add low-dose morphine.
1:50 PM: Patient states pain persists however she appears fairly comfortable. Awaiting GI evaluation.
Past History
Past History
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
irritable bowel syndrome, osteoporosis, DVT,)
ED Past Surgical History: Bowel resection (colon resection for diverticulitis), Cardiac ( stent placement in March 2003), Gynecological (Hysterectomy) and Orthopedic (Left wrist plate in 2003)
Patient has exhibited threatening behavior?: No
PSI?: No
Social History
Tobacco: Non-smoker
Alcohol: Daily (Wine one glasses)
Drug: None
Personal:
Living: alone
Employment: Retired
Family History
Family History: Other (Noncontributory)
Phy Exam
Physical Exam
Physical Exam:
See HPI
Course
Orders/Labs/Results
Orders:
Orders
01/06/24 10:00
Electrocardiogram (*1) Urgent
Reason for Study: Abdominal Pain
EKG- Treatment ONCE
01/06/24 10:11
Complete Blood Count/With Diff Urgent
Comprehensive Metabolic Panel Urgent
Lipase Urgent
Urinalysis Reflex To Culture Urgent
Date Specimen was Collected: 01/06/24
Time Specimen was Collected: 10:01
Urine Microscopic Reflex Cult Urgent
Urine Culture Urgent
KARISHMA Source: U
Specimen Description:
Date Specimen was Collected: 01/06/24
Time Specimen was Collected: 10:01
01/06/24 10:59
Lidocaine [Lidocaine 4% Patch] 1 patch TOPICAL NOW STA
Apply Lidocaine patch(s) to:: left flank
01/06/24 12:44
STOOL [C difficile Antigen & Toxins] Urgent
KARISHMA Source: Feces/Stool
Specimen Description:
Date Specimen was Collected: 01/07/24
Time Specimen was Collected: 10:20
Stool Culture Urgent
KARISHMA Source: Feces/Stool
Specimen Description:
Date Specimen was Collected: 01/07/24
Time Specimen was Collected: 10:20
01/06/24 13:04
Morphine Sulfate 2 mg IV NOW STA
Ondansetron Injectable [Zofran] 4 mg IV NOW STA
01/06/24 14:42
Obstruct Series W/PA Chest [CR Obstruct Series W/pa Chest] Routine
Comment:
Reason For Exam: constipation/abdominal pain
01/06/24 14:54
Admit/Transfer Patient As Directed
Co-Sign Provider:
Level of Care: Observation services
Assign to:: Medical/Surgical
Physician / Group: [email or web address]
Diagnosis: acute abdominal pain, constipation
01/06/24 14:58
Code Status As Directed
Resuscitation Status: Full Code
01/06/24 Dinner
Clear Liquid
At Your Request: Full Participation
Clear Liquid
At Your Request: Full Participation
Comment: ADAT
01/06/24 16:45
Ketorolac [Toradol] 10 mg IV Q6HPRN PRN
01/06/24 17:34
0.9% Sodium Chloride 1000 ml [Nss] 1,000 ml IV 60 mls/hr
Acetaminophen [Tylenol] 650 mg PO Q4HPRN PRN
Bisacodyl [Dulcolax] 10 mg RECTAL [id number] PRN
Docusate W/Senna [Senokot-S] 1 tablet PO BIDPRN PRN
Ipratropium/Albuterol Sulfate [Duoneb] 3 ml INH R Q4HPRN PRN
Ondansetron Injectable [Zofran] 4 mg IV Q6HPRN PRN
Polyethylene Glycol Powder [Miralax] 17 grams PO DAILYPRN PRN
01/06/24 17:34
GASTROINTESTINAL CONSULT Routine
Consulting Provider: Ingrid Julian
Was physician already notified: Yes
Reason for consult: abdominal pain and constipation
Activity As Directed
Activity Level: With Assistance
Pneumatic Compression Sleeves As Directed
Type: Knee high
Vital Signs As Directed
Frequency: Per unit guidelines
Weight As Directed
Frequency: Daily
DX Deep Vein Thrombosis Video Routine
01/06/24 18:39
DIETARY CONSULT Routine
Reason for Consult: weight loss, poor appetite
Pt Screening Request from Mesha Routine
01/06/24 19:00
Flush (0.9% Sodium Chloride) [Flush (Nss)] See Dose Instructions IV PER PROTOCOL
01/06/24 21:12
Morphine Sulfate 1 mg IV NOW STA
01/07/24 Breakfast
Full Liquids
At Your Request: Full Participation
Full Liquid: Gluten Free
01/07/24 06:56
Basic Metabolic Panel IN AM
Complete Blood Count/No Diff IN AM
01/07/24 08:00
Magnesium Citrate [Citroma] 300 ml PO ONCE ONE
01/07/24 15:00
Pantoprazole [Protonix] 40 mg PO DAILY
01/08/24 00:24
Tramadol HCl [Ultram] 50 mg PO NOW STA
01/08/24 06:56
Basic Metabolic Panel IN AM
Complete Blood Count/No Diff IN AM
Magnesium IN AM
Phosphorus IN AM
01/08/24 08:00
Polyethylene Glycol Powder [Miralax] 17 grams PO DAILY
01/08/24 09:58
Change in Level of Care [Level of Care Change] As Directed
Level of Care: Inpatient admission
Reason for Hospitalization: severe intermittent abd pain possibly due to severe constipation
Expected length of stay greater than two midnights?: Yes
ELOS- Estimated Length of Stay in days: 2
I certify the patient meets the requirements for IP care: Yes
01/09/24 07:13
Basic Metabolic Panel IN AM
Magnesium IN AM
Phosphorus IN AM
01/10/24 06:00
Basic Metabolic Panel IN AM
Complete Blood Count/No Diff IN AM
Magnesium IN AM
Phosphorus IN AM
01/11/24 06:00
Basic Metabolic Panel IN AM
Complete Blood Count/No Diff IN AM
Magnesium IN AM
Phosphorus IN AM
01/12/24 06:00
Basic Metabolic Panel IN AM
Complete Blood Count/No Diff IN AM
Magnesium IN AM
Phosphorus IN AM
01/13/24 06:00
Basic Metabolic Panel IN AM
Complete Blood Count/No Diff IN AM
Magnesium IN AM
Phosphorus IN AM
01/14/24 06:00
Basic Metabolic Panel IN AM
Complete Blood Count/No Diff IN AM
Magnesium IN AM
Phosphorus IN AM
Abnormal Lab Results
01/06/24 01/07/24 01/08/24
10:11 06:56 06:56
WBC 12.6 H 10^3/uL 11.5 H 10^3/uL
(4.8-10.8) (4.8-10.8)
RDW 15.8 H % 15.6 H % 15.1 H %
(11.5-14.5) (11.5-14.5) (11.5-14.5)
Plt Count 552 H 10^3/uL 506 H 10^3/uL 405 H 10^3/uL
(130-400) (130-400) (130-400)
Abs Immat Gran (auto) 0.1 H 10^3/uL
(0-0.05)
Absolute Neuts (auto) 9.2 H 10^3/uL
(1.4-6.5)
Absolute Monos (auto) 0.8 H 10^3/uL
(0.1-0.6)
Lymphocytes % 18.8 L %
(20.5-51.1)
Sodium 134 L mmol/L 133 L mmol/L
(135-145) (135-145)
Carbon Dioxide 18 L mmol/L
(22-30)
Creatinine 0.5 L mg/dL 0.5 L mg/dL
(0.6-1.0) (0.6-1.0)
Glucose 117 H mg/dl 111 H mg/dl 114 H mg/dl
(70-99) (70-99) (70-99)
Magnesium 2.5 H mg/dl
(1.6-2.3)
Urine Ketones Trace A
(Negative)
Urine Bilirubin 1+ A
(Negative)
Leukocyte Esterase Rfl 2+ A
(Negative)
Urine Bacteria (Reflex) Few A
(Negative)
01/08/24 06:56
01/08/24 06:56
Vital Signs
Initial and Last Documented VS:
Initial Vital Signs
Temp Pulse Resp BP Pulse Ox
97.7 F 95 16 156/81 98
01/06/24 09:57 01/06/24 09:57 01/06/24 09:57 01/06/24 09:57 01/06/24 09:57
Last Documented Vital Signs
Temp Pulse Resp BP Pulse Ox
98.1 F 86 18 96/51 96
01/09/24 23:32 01/09/24 23:32 01/09/24 23:32 01/09/24 23:32 01/09/24 23:32
*Critical Care Note
Total Time (30-74mins, 75-104mins- exclusive of procedures): Not Applicable
ED Attending Note
-
Portions of this chart may have been created with voice recognition software.� Occasional wrong word or��sound alike� substitutions may have occurred due to the inherent limitations of voice recognition software.
Discharge Plan
Departure
Patient Disposition: Admit
Presentation/result/management discussed w/ accepting MD/DO: Hospitalist
Discharge Problem:
Abdominal pain
Interventions
Interventions:
*Risk Screen - Suicide Last Done: 01/06/24 09:57
*General Assessment Last Done: 01/06/24 11:23
*Neglect/Abuse Screening Last Done: 01/06/24 09:57
ED- Fall Risk Assessment Last Done: 01/06/24 13:47
*ED COVID-19 Vaccine History Last Done: 01/06/24 11:23
*Nursing Disposition Last Done: 01/06/24 17:11
XQ-Kxzvph-Pqvqauwmes Assessment Last Done: 01/06/24 11:23
Discharge Date and Time
Discharge Date/Time: 01/06/24 17:12
[2024-01-06 10:22] LABS: % Basophils 0.7 % (0-2); % Immature Granulocytes 0.5 % (0-0.5); % Lymphocytes 18.8 % (20.5-51.1); Absolute Basophils 0.1 10^3/uL (0-0.2); Absolute Eosinophils 0.1 10^3/uL (0-0.7); Absolute Immature Granulocytes 0.1 10^3/uL (0-0.05); Absolute Lymphocytes 2.4 10^3/uL (1.2-3.4); Absolute Monocytes 0.8 10^3/uL (0.1-0.6); Absolute Neutrophils 9.2 10^3/uL (1.4-6.5); Hematocrit 41.6 % (37.0-47.0); Hemoglobin 13.8 g/dL (12.0-16.0); Mean Corp Hgb Conc. 33.2 g/dL (33.0-37.0); Mean Corpuscular Hgb 28.8 pg (27.0-31.0); Mean Corpuscular Volume 86.7 fL (81.0-99.0); Mean Platelet Volume 8.7 fL (7.4-10.4); Nucleated Red Blood Cells % 0 %; Platelet Count 552 10^3/uL (130-400); Red Cell Dist. Width 15.8 % (11.5-14.5); White Blood Cell Count 12.6 10^3/uL (4.8-10.8)
[2024-01-06 10:23] LABS: Urine Albumin Trace (Neg - Trace); Urine Bilirubin 1+ (Negative); Urine Character Clear (Clear); Urine Color Yellow; Urine Glucose Negative (Negative); Urine Ketone Trace (Negative); Urine Leukocyte 2+ (Negative); Urine Nitrite Negative (Negative); Urine Occult Blood Negative (Negative); Urine Specific Gravity 1.015 (<1.030); Urine Urobilinogen Negative (Neg - 1+)
[2024-01-06 10:36] LABS: ALT (SGPT) 25 U/L (0-35); AST (SGOT) 22 U/L (14-36); Albumin 4.5 g/dl (3.5-5.0); Alkaline Phosphatase 67 U/L (38-126); Blood Urea Nitrogen 10 mg/dl (7-17); Carbon Dioxide 26 mmol/L (22-30); Chloride 102 mmol/L (98-107); Glucose 117 mg/dl (70-99); Lipase 162 U/L (23-300); Potassium 4.6 mmol/L (3.5-5.1); Sodium 139 mmol/L (135-145); Total Bilirubin 0.7 mg/dl (0.2-1.3); Total Protein 7.4 g/dl (6.3-8.2); eGFR > 60.00
[2024-01-06 10:37] LABS: Urine Bacteria Few (Negative); Urine Red Blood Cell 0-2 /HPF (0-2)
[2024-01-06 11:23] VITALS: BP 145/72
[2024-01-06] MEDS: LIDOCAINE 4% PATCH 1 PATCH TOPICAL (11:37)
--- NOTE | 2024-01-06 12:20 | HPS.HSE ---
Family Physician
-
Family Physician: Margarita Key
Chief Complaint
-
3rd visit to ER for abdominl pain
History of Present Illness
83FHX COPD. HLD, constipation Ongoing left sided abd pain for weeks and 3rd visit( 01/05, 1023, 12/30) to ER who she fro abdominal pain is known to Dr. Mccollum.
On 12/30, CT w/ oral and IV showed large amnt stool and WBC 13.1
On 01/03, CT w/ IV showed gallstones, WBC 9.7.
01/05 Today, WBC 12.6. Not t re-CT for a third time.
ER attd notified GI Dr Julian who suggested checking x-ray for stool burden - pt refuses any additional radiation including x-ray. Per Dr Julian , patient had colo in 2021 w/ Bernice. I
Pateint is 'very upset' that she has been here 3x and has been discharged.
Medical History
Past Medical History
Past Medical History: Reports Other (see below)
Additional Past Medical History:
1. Degenerative disc disease spinal stenosis spondylolisthesis.
2. Hypertension.
3. Hyperlipidemia.
4. Coronary artery disease, status post RCA PCI in 2003, LAD PCI
� � 2013, with 70% ramus disease medically managed.
5. DVT greater than 10 years, provoked.
6. Thrombocytosis.
7. Non insulin-dependent diabetes.
8. Restrictive lung disease.
9. History of remote tobacco abuse.
10.Irritable bowel with diarrhea.
11.Gastroesophageal reflux disease.
12.Lower GI bleed.
13.History of diverticulitis, status post bowel resection.
14.Celiac disease.
15.Fatty liver.
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
17.Osteoporosis.
18.Anxiety.
19.Urinary retention.
20.Recent C. diff.
21.Recent urinary retention.
�
Past Surgical History: Reports Other (see below)
Additional Past Surgical History:
1. Bowel resection.
2. Cardiac stent.
3. Left wrist plate.
4. Hysterectomy.
5. Hernia repair x2
Social History
Tobacco: Former Smoker
Alcohol: Occasional
Family History
Family History: Not pertinent
Allergies / Home Medications
Allergies reflects when Allergies were last updated in [employer].
Home Medications with original date entered in [employer]
Allergy/Medication List:
HOME MEDICATIONS:
1. Aspirin 81 mg at bedtime.
2. Atorvastatin 40 mg at bedtime.
3. Valium 5 mg b.i.d. p.r.n. anxiety.
4. Atrovent two inhalations b.i.d.
5. Imodium 2 mg daily p.r.n. diarrhea.
6. Metoprolol tartrate 12.5 mg b.i.d.
7. Percocet 5/325 q. six hours p.r.n. [id number] pain.
8. Prednisone 10 mg daily.
9. Tramadol 50 mg q.i.d.
�
ALLERGY:� Cefdinir, codeine, gluten, heparin, Levaquin,
metronidazole, penicillin, and shellfish.
Review of Systems
-
Constitutional: Reports No Symptoms
EENT: Reports No Symptoms
Respiratory: Reports No Symptoms
Cardiac: Reports No Symptoms
Abdomen/GI: Reports See HPI and Abdominal Pain ( mild left-sided abdominal tenderness)
: Reports No Symptoms
Musculoskeletal: Reports No Symptoms
Skin: Reports No Symptoms
Neurological: Reports No Symptoms
Endocrine: Reports No Symptoms
Hematologic/Lymphatic: Reports No Symptoms
Psych: Reports No Symptoms
Physical Exam
Vital Signs
Vital Signs
Temp Pulse Resp BP Pulse Ox
97.7 F 92 18 145/72 97
01/06/24 09:57 01/06/24 11:23 01/06/24 11:23 01/06/24 11:23 01/06/24 11:23
Physical Exam
General: Well Developed and Well Nourished
HEENT: NormoCephalic, Anicteric, Moist mucous membranes and Atraumatic
Respiratory: Clear
Cardiac: S1/S2 and Regular Rhythm; No Murmur or Rub
GI: Soft, Non Distended, Normal Bowel Sounds and Tender ( mild left-sided abdominal tenderness); No Distended or Organomegaly
Rectal: Deferred by Provider
Musculoskeletal: No Clubbing, No Cyanosis and No Edema
Skin: No Rash
Neuro: AO x 3 and Nonfocal/grossly intact
Psych: Anxious
Laboratory Results
-
01/06/24 10:11
01/06/24 10:11
Laboratory Results
Total Bilirubin 0.7 mg/dl (0.2-1.3) 01/06/24 10:11
AST 22 U/L (14-36) 01/06/24 10:11
ALT 25 U/L (0-35) 01/06/24 10:11
Alkaline Phosphatase 67 U/L (38-126) 01/06/24 10:11
Lipase 162 U/L (23-300) 01/06/24 10:11
Data Reviewed
-
CT Scan: Report Reviewed by me
Lab Data: Labs Reviewed by me
Old Records: Reviewed
Impression/Plan
-
Vital Signs
Temp Pulse Resp BP Pulse Ox
97.7 F 92 18 145/72 97
01/06/24 09:57 01/06/24 11:23 01/06/24 11:23 01/06/24 11:23 01/06/24 11:23
Laboratory Tests
01/06/24
10:11
WBC 12.6 H
BUN 10
Creatinine 0.7
eGFR > 60.00
Glucose 117 H
Total Bilirubin 0.7
AST 22
ALT 25
[address] Abd/pelvis W Iv Cont
1. Cholelithiasis and/for gallbladder sludge.
2. Sigmoid diverticulosis without accompanying inflammatory changes.
3. No intestinal obstruction or free air.
4. Right hip arthroplasty is again seen with prominent beam hardening artifact obscuring the soft tissues of the true pelvis.
Last hospitalist admission:
Date of Admission: 04/06/22 - Date of Discharge: 04/08/22
Discharge Diagnosis/Procedures: Exertional shortness of breath, possible emphysema/bronchiolitis.
ASSESSMENT & PLAN
Pending Rx reconciliation
Ongoing left sided abd pain for weeks without clinical peritonism:AXR suspect constipation per GI
Fluctuant Leucocytosis of unclear clinical significance with prior HX
Cholelithiasis and/for gallbladder sludge but no clinical signs of acute cholecystitis
Unremarkable Labs such as nl TB, nl LFTs, nl Lipase, nl RFTs
Unremarkable CT AP times 2. No BWO. No diverticulitis
Of note: last colonoscopy in 2021 ( Dr Yousif)
- Observation for abdominal pain of unknwon origins
- f/u BM
- BW regime
- GI conulted
Acute intermittent leukocytosis: No fever
Possible reactive
- Trend WCC
HX possible underlying lung disease: was suggest f/u with Pul and OP PFT on last admission
Former smoker
last admission note:
- trial of Duo Nebs made her jittery thus change to Atrovent inhaler upon dc
- No evidence of hypoxia on ambulation
- CT showed possible COPD changes
- Cardiology evaluated and no angina
- no eosinophilia
- no wheezes on exam.
Pulmonary consulted then for PFT to r/p COPD/ restrictive lung disease.
HX CAD/IN x2, RCA LUNA to proximal stent March 2003
01/20/2022: cardiac catheterization - distal to proximal 70% stenosis in the ramus intermedius but too small for PCI
- Medical Rx Toprol Xl, ASA , Lipitor
- HX noncompliant with her Toprol XL due to fatigue
Chronic Back pain/Spinal Stenosis on Chronic oral opiates
Scheduled to have spinal surgery with Dr Olivares end of 04/2022
- OP Pain Meds PRN
Benign HTN
BP stable
- continue metoprolol tartrate
HLD
- Continue atorvastatin
Other PMH:
Lipomas around heart
Celiac disease
Diverticulitis with history of bowel resection
Hiatal hernia
Osteoporosis
DVT Px: SCD due to allergy to Heparin with HX thrombocytopenia
Full code
Obs MS
[2024-01-06] MEDS: MORPHINE SULFATE 2 MG IV (13:18)
[2024-01-06] MEDS: ZOFRAN 4 MG IV (13:18)
[2024-01-06 13:23] VITALS: BP 147/69
--- NOTE | 2024-01-06 14:37 | CON.GI ---
Addendum entered and electronically signed by Ingrid Julian MD 01/06/24 19:46:
I saw and examined the patient.
The HOG STOMACH PREPARER or PA's note was reviewed and I agree with the note.
Comment: 83-year-old female with history of celiac disease on gluten-free diet, history of erratic bowel pattern, history of partial colectomy for diverticulitis, IBS, presenting with complaints of left-sided abdominal pain in the last 2 weeks and
constipation. Patient has history of chronic constipation but takes laxatives as needed, she does have intermittent episodes of diarrhea and also takes Imodium. She is on tramadol for chronic arthritic pains. She reports that she has been more
constipated lately but also has been taking Imodium for fear of loose stool. Denies any nausea, vomiting, heartburn .last colonoscopy in 2021 unremarkable but nonspecific colitis noted. No evidence of microscopic colitis. No blood in the stool or
black stool.
She had CT scan of the abdomen and pelvis Twice, 1 with contrast and 1 without contrast in the last week, large volume of feces noted in the colon suggesting constipation but no evidence of diverticulitis. Abdominal x-ray today showing stool in the
right colon.
-Left lower current abdominal pain/constipation
Constipation likely causing the pain. She does have significant amount of stool in the colon.
Discussed with patient that Imodium and narcotics will cause chronic constipation and she should avoid taking Imodium and limit narcotic use.
She does take MiraLAX but only as needed, she will need a good bowel regimen.
Will give her magnesium citrate 300 mL in the morning to clear out the colon followed by MiraLAX 1 capful daily, she can adjust the dose and frequency of MiraLAX based on her bowel pattern.
She also has a component of possible pelvic floor dysfunction, she did go for pelvic floor physical therapy in the past. She follows up with Dr. Mccollum in the office.
Currently on clear liquid diet, will advance as tolerated once abdominal pain is better.
She should be on a gluten-free diet once she is advanced to regular food.
Will follow-up
Original Note:
Consultation
-
Date/Time Consultation Requested: 01/06/24 1040
Date/Time Consultation Performed: 01/06/24 1410
Requesting Provider: Dr. Bauman
Performing Provider: Dr. Julian / Jaimee Hewitt PA-C
Reason for Consultation: abdominal pain
Medical History
Chief Complaint / HPI
Chief Complaint: abdominal pain
History of Present Illness:
This is an 83 year old female with a past medical history of celiac disease, chronic pain (on tramadol), CAD, fatty liver, remote h/o partial colectomy due to diverticulitis, colon polyps and IBS who complains of left-sided abdominal pain for the
past 10 days. Pain is described as mostly left upper quadrant and feels dull, achy and does radiate into her left upper/mid back. Bowel movements or food do not seem to affect the pain. No associated nausea, vomiting, fevers, heartburn, reflux or
dysphagia. The pain is worsening in severity since onset, and this is her 3rd ER visit since 12/31/23 for the same pain. She was evaluated initially on 12/30 with workup including labs (unremarkable) and CT abdomen/pelvis that showed large stool
burden, diverticulosis without evidence of acute diverticulitis, and cholelithiasis. She was discharged home but returned on 01/03 as the pain persisted. She was prescribed Bactrim for possible UTI after initial ER visit, but states she did not take
it. CT was repeated, no significant acute findings. She was again discharged, but as pain worsened she presented again to ER. Pain is unchanged in nature, but feels worse. She has a history of IBS with alternating diarrhea and constipation. She
reports having a BM every other day, but often strains. She has celiac disease, diagnosed years ago, and she is compliant with keeping a strict gluten-free diet. She takes daily narcotic pain medication (Tramadol or Vicodin) for her chronic pain and
also admits to using Imodium ('I live on Imodium') daily as 'I'm afraid to have diarrhea when I go out.' No rectal bleeding. She had a colonoscopy in 2021 which showed normal mucosa of the colon and terminal ileum, but colon biopsies did show a
nonspecific colitis. There is no family history of colon cancer or IBD.
Past Medical History
Past Medical History: Other (eliac disease, chronic pain (on tramadol), CAD, fatty liver, remote h/o partial colectomy due to diverticulitis, colon polyps and IBS )
Past Surgical History: Bowel Resection
Social History
Tobacco: Non-Smoker
Alcohol: None
Drug: None
Living: Alone
Family History
Family History: Other (no GI malignancies)
Allergies / Home Medications
Allergy/AdvReac Type Severity Reaction Status Date / Time
cefdinir Allergy Rash Verified 01/06/24 09:59
codeine Allergy Swelling Verified 01/06/24 09:59
gluten Allergy diarrhea- Verified 01/06/24 09:59
Celiac
Disease
heparin Allergy thrombocyto Verified 01/06/24 09:59
penia
levofloxacin [From Levaquin] Allergy Rash Verified 01/06/24 09:59
Metronidazole HCl Allergy Rash Verified 01/06/24 09:59
[From Flagyl]
Penicillins Allergy Shortness Verified 01/06/24 09:59
of Breath
shellfish derived Allergy throat Verified 01/06/24 09:59
closed
with shrimp
�Medication �Instructions �Recorded
atorvastatin 40 mg tablet 40 mg PO QPM High cholesterol 05/04/15
aspirin 81 mg chewable tablet 81 mg PO QPM Blood clot 01/14/20
prevention/tx
metoprolol tartrate 25 mg tablet 12.5 mg (1/2 x 25 mg) PO BID #60 01/22/22
tabs
ipratropium bromide 17 2 puff inhalation BID 05/21/22
mcg/actuation HFA aerosol inhaler
(Atrovent HFA)
Saccharomyces boulardii 250 mg 250 mg PO DAILY #1 cap 06/08/22
capsule
acetaminophen 325 mg tablet 650 mg (2 x 325 mg) PO QID #0 tabs 06/09/22
(Tylenol)
diazepam 5 mg tablet (Valium) 2.5 mg (1/2 x 5 mg) PO BID PRN 06/09/22
Anxiety #0 tabs
methylcellulose (laxative) 500 mg 500 mg PO BID PRN constipation #1 06/09/22
tablet (Citrucel) tab
oxycodone 5 mg capsule 5 mg PO Q6H PRN moderate-severe 06/09/22
paibn #1 cap
acetaminophen 500 mg tablet (Pain 1,000 mg (2 x 500 mg) PO TIDPRN 06/17/22
Relief Extra Strength PRN mild pain #30 tabs
(acetaminophen))
calcium polycarbophil 625 mg 625 mg PO BIDPRN PRN CONSTIPATION 06/17/22
tablet (Fiber-Tabs) #30 tabs
docusate sodium 100 mg capsule 100 mg PO DAILY #30 caps 06/17/22
ipratropium bromide 17 2 puff inhalation R BID@0800,1600 06/17/22
mcg/actuation HFA aerosol inhaler #12.9 grams
(Atrovent HFA)
lidocaine 4 % topical patch 1 patch topical DAILY #30 ea 06/17/22
multivitamin with folic acid 400 1 tab PO DAILY #30 tabs 06/17/22
mcg tablet (Tab-A-Tiffany)
pantoprazole 20 mg tablet,delayed 20 mg PO DAILY #30 tabs 06/17/22
release
polyethylene glycol 3350 17 gram 17 g PO DAILY #30 ea 06/17/22
oral powder packet (HealthyLax)
hydrocodone 5 mg-acetaminophen 325 1 tab PO Q8H PRN Pain #10 tabs 09/09/23
mg tablet
prednisone 10 mg tablet See Rx Instructions .Route 09/09/23
.COMPLEX #30 tabs
dicyclomine 20 mg tablet 20 mg PO BID PRN abdominal pain 12/31/23
#10 tabs
sulfamethoxazole 800 1 tab PO BID #14 tabs 12/31/23
mg-trimethoprim 160 mg tablet
(Bactrim DS)
ketorolac 10 mg tablet 10 mg PO Q8H 4 days #12 tabs 01/04/24
Review of Systems
-
History Source: Patient
All other systems: A 12 pt ROS was Negative except as stated above in HPI
Vital Signs
Temp Pulse Resp BP Pulse Ox
97.7 F 89 18 147/69 97
01/06/24 09:57 01/06/24 13:23 01/06/24 13:23 01/06/24 13:23 01/06/24 13:23
Physical Exam
Exam
General: Well Developed, Well Nourished and No Apparent Distress
Respiratory: Clear
Cardiac: Regular Rhythm
GI: Soft, Non Distended, Normal Bowel Sounds and Tender (+mild tenderness of the LUQ)
Skin: Warm and Dry
Neuro: Awake, Alert and Oriented
Psych: Calm
Results
WBC 12.6 10^3/uL (4.8-10.8) H 01/06/24 10:11
Hgb 13.8 g/dL (12.0-16.0) 01/06/24 10:11
Hct 41.6 % (37.0-47.0) 01/06/24 10:11
MCV 86.7 fL (81.0-99.0) 01/06/24 10:11
Plt Count 552 10^3/uL (130-400) H 01/06/24 10:11
Absolute Neuts (auto) 9.2 10^3/uL (1.4-6.5) H 01/06/24 10:11
Sodium 139 mmol/L (135-145) 01/06/24 10:11
Potassium 4.6 mmol/L (3.5-5.1) 01/06/24 10:11
Chloride 102 mmol/L (98-107) 01/06/24 10:11
Carbon Dioxide 26 mmol/L (22-30) 01/06/24 10:11
BUN 10 mg/dl (7-17) 01/06/24 10:11
Creatinine 0.7 mg/dL (0.6-1.0) 01/06/24 10:11
Calcium 10.0 mg/dl (8.4-10.2) 01/06/24 10:11
Total Bilirubin 0.7 mg/dl (0.2-1.3) 01/06/24 10:11
AST 22 U/L (14-36) 01/06/24 10:11
ALT 25 U/L (0-35) 01/06/24 10:11
Alkaline Phosphatase 67 U/L (38-126) 01/06/24 10:11
Lipase 162 U/L (23-300) 01/06/24 10:11
Diagnostic Image Results:
CT Abdomen/Pelvis 01/04/24:
-Cholelithiasis and/for gallbladder sludge.
-Sigmoid diverticulosis without accompanying inflammatory changes.
-No intestinal obstruction or free air.
-Right hip arthroplasty is again seen with prominent beam hardening artifact obscuring the soft tissues of the true pelvis.
CT Abdomen/Pelvis 12/31/23:
1). There is large volume feces throughout colon suggesting possible constipation
2). Diverticuli are present in the colon with no CT evidence of diverticulitis
3). Cholelithiasis
4). Stable postoperative changes in the lumbar spine
5). Right hip replacement
Prior GI Procedures:
EGD:
04/2018, Dr. Queen
- Normal esophagus. Biopsied for evaluation of
eosinophilic esophagitis.
- Z-line regular, 38 cm from the incisors.
- Widely patent and non-obstructing Schatzki ring.
- Minimal antral gastritis. Biopsied.
- Normal examined duodenum.
Colonoscopy:
09/2021, Dr. Morsbach
- Patent end-to-end colo-colonic anastomosis,
characterized by healthy appearing mucosa.
- Normal mucosa in the entire examined colon. Multiple
biopsies were obtained for evaluation of microscopic
colitis
Path: mild colitis with no evidence of cryptitis, abscess formation, granulomata or dysplasia
01/2020, Dr. Oquendo
- The examined portion of the ileum was normal.
- One 3 mm polyp in the cecum, removed with a jumbo
cold forceps. Resected and retrieved.
- Two 2 to 3 mm polyps in the transverse colon,
removed with a jumbo cold forceps. Resected and
retrieved.
- One 2 mm polyp in the sigmoid colon, removed with a
jumbo cold forceps. Resected and retrieved.
- Diverticulosis in the sigmoid colon.
- Mucosal ulceration with erythema, and granularity in
the sigmoid colon suspicious for ischemic colitis.
Path: sessile serrated adenomas and tubular adenoma. Sigmoid colon bx showed colonic mucosa with an ischemic colitis pattern
Assessment / Plan
-
83 year old female with a history of celiac disease, chronic pain (on tramadol), CAD, fatty liver, remote h/o partial colectomy due to diverticulitis, colon polyps and IBS who complains of left-sided abdominal pain for the past 10 days. Pain is
located in the left upper quadrant and feels dull, achy and radiates into left upper/mid back. Bowel movements or food do not affect the pain. No nausea, vomiting, fevers, heartburn, reflux or dysphagia. The pain is worsening in severity since
onset, and this is her 3rd ER visit since 12/31/23 for the same pain. She was evaluated initially on 12/30 with workup including labs (unremarkable) and CT abdomen/pelvis that showed large stool burden, diverticulosis without evidence of acute
diverticulitis, and cholelithiasis. She was discharged home but returned on 01/03 as the pain persisted. She was prescribed Bactrim for possible UTI after initial ER visit, but states she did not take it. CT was repeated, no significant acute
findings. She was again discharged, but as pain worsened she presented again to ER. Pain is unchanged in nature, but feels worse. She is known to our GI practice, sees Dr. Mccollum (formerly Dr. Queen) with a chronic history of IBS with alternating
diarrhea and constipation. She reports having a BM every other day, but often strains. She has celiac disease, diagnosed years ago, and she is compliant with strict gluten-free diet. She takes daily narcotic pain medication (Tramadol or Vicodin) for
her chronic pain and also admits to using Imodium ('I live on Imodium') daily as 'I'm afraid to have diarrhea when I go out.' No rectal bleeding. She had a colonoscopy in 2021 which showed normal mucosa of the colon and terminal ileum, but colon
biopsies did show a nonspecific colitis. There is no family history of colon cancer or IBD.
Labs reviewed: WBC 12.6, hemoglobin 13.8, platelets 552, total bili 0.7, AST 22, ALT 25, alk phos 67, lipase 162. Urinalysis reveals 2+ leukocyte esterase. Urine culture is pending.
IMPRESSION / PLAN:
Abdominal Pain, left upper quadrant - suspect secondary to constipation
- prior imaging (CT) showing constipation with large fecal burden
- will order obstruction series to assess stool burden
- await x-ray results; consider milk of molasses enema followed by consistent bowel regimen
- await urine culture results to rule out UTI as possible contributing factor to her abdominal pain
- constipation exacerbated by narcotic and Imodium use
Other medical issues managed as per hospitalist.
-
-
Thank you for consultation and allowing me to participate in the patient's care. Please call the manager completions GI physician during the after hours with any questions or concerns.
[2024-01-06 15:00] VITALS: BP 145/67
[2024-01-06 16:49] VITALS: BMI 22.1
[2024-01-06] MEDS: TORADOL 10 MG IV ×2 (16:51→23:40)
[2024-01-06 17:42] VITALS: BP 168/76
--- NOTE | 2024-01-06 17:58 | PTCARENOTE ---
Received patient from ED via stretcher. Pt AAOX3. Pox: 98% RA. Call larson within reach. Plan of care ongoing.
[2024-01-06] MEDS: NSS 1000 IV (18:38)
[2024-01-06] MEDS: TYLENOL 650 MG PO (18:44)
[2024-01-06] MEDS: MORPHINE SULFATE 1 MG IV (21:31)
[2024-01-06 23:10] VITALS: BP 167/92
[2024-01-07] MEDS: TYLENOL 650 MG PO ×2 (03:10→23:36)
[2024-01-07] MEDS: ZOFRAN 4 MG IV ×3 (03:10→20:04)
[2024-01-07 06:00] VITALS: BMI 21.1
--- NOTE | 2024-01-07 06:26 | W.PN.HOSP.TC ---
Today's Communication/Plan
-
mag citroma as per GI
clear liquid diet advanced to Full Liquid
observe
pain control prn
Assessment / Plan
Assessment / Plan
Physical Exam
General: No acute distress appears comfortable a this time
HEENT: NormoCephalic, Anicteric, Moist mucous membranes and Atraumatic
Respiratory: Clear
Cardiac: S1/S2 and Regular Rhythm; No Murmur or Rub
GI: Soft, Non Distended, Normal Bowel Sounds and nontender; No Distended or Organomegaly
Musculoskeletal: No Clubbing, No Cyanosis and No Edema
Skin: No Rash
Neuro: AO x 3 and Nonfocal/grossly intact
Psych: Calm
83FHX COPD. HLD, constipation Ongoing left sided abd pain for weeks. 3rd visit to ER for abdomen pain. Known to GI Dr. Mccollum.
On 12/30, CT w/ oral and IV showed large amnt stool and WBC 13.1
On 01/03, CT w/ IV showed gallstones, WBC 9.7.
Ongoing left sided abd pain for weeks without clinical peritonism:AXR suspect severe constipation per GI
Fluctuant Leucocytosis of unclear clinical significance with prior HX
Cholelithiasis and/for gallbladder sludge but no clinical signs of acute cholecystitis
Unremarkable Labs such as nl TB, nl LFTs, nl Lipase, nl RFTs
Unremarkable CT AP times 2. No BWO. No diverticulitis
Of note: last colonoscopy in 2021 (Dr Queen)
-Observation for abdominal pain likely d/t severe constipation, significantly improved following bowel movements
-mag citroma as per GI
-GI consult appreciated
-clear liquid diet advanced to full liquid
Acute intermittent leukocytosis: No fever
Likely reactive
- resolving
HX possible underlying lung disease: was suggest f/u with Pul and OP PFT on last admission
Former smoker
last admission note:
- trial of Duo Nebs made her jittery thus change to Atrovent inhaler upon dc
- No evidence of hypoxia on ambulation
- CT showed possible COPD changes
- Cardiology evaluated and no angina
- no eosinophilia
- no wheezes on exam.
HX CAD/TX x2, RCA LUNA to proximal stent March 2003
01/20/2022: cardiac catheterization - distal to proximal 70% stenosis in the ramus intermedius but too small for PCI
- Medical Rx Toprol Xl, ASA , Lipitor
- HX noncompliant with her Toprol XL due to fatigue
Chronic Back pain/Spinal Stenosis on Chronic oral opiates
Scheduled to have spinal surgery with Dr Olivares end of 04/2022
- OP Pain Meds PRN
Benign HTN
BP stable
- continue metoprolol tartrate
HLD
- Continue atorvastatin
Other PMH:
Lipomas around heart
Celiac disease
Diverticulitis with history of bowel resection
Hiatal hernia
Osteoporosis
DVT Px: SCD due to allergy to Heparin with HX thrombocytopenia
GI ppx protonix while on prn Toradol
Full code
Obs MS
I spent a total of 35 minutes with the patient or on the floor. More than 50% of this time involved counseling and coordination of care.
Anticipated Discharge: Within 24 hours
Subjective/Interval History
-
Date of Service: January 07, 2024
No acute distress sitting up comfortably in bed. reports significant improvement in overall symptoms since resolution of constipation.
Objective Data
-
Labs:
Laboratory Results
01/07/24
06:00
WBC Pending
Hgb Pending
Hct Pending
Plt Count Pending
Sodium Pending
Potassium Pending
Chloride Pending
Carbon Dioxide Pending
BUN Pending
Creatinine Pending
Glucose Pending
Calcium Pending
Vital Signs:
Vital Signs
Temp Pulse Resp BP Pulse Ox
98.3 F 96 18 167/92 98
01/06/24 23:10 01/06/24 23:10 01/06/24 23:10 01/06/24 23:10 01/06/24 23:10
[2024-01-07 07:00] VITALS: BP 162/88
[2024-01-07 07:34] LABS: Hematocrit 39.9 % (37.0-47.0); Hemoglobin 13.5 g/dL (12.0-16.0); Mean Corp Hgb Conc. 33.8 g/dL (33.0-37.0); Mean Corpuscular Hgb 28.8 pg (27.0-31.0); Mean Corpuscular Volume 85.3 fL (81.0-99.0); Mean Platelet Volume 9.3 fL (7.4-10.4); Platelet Count 506 10^3/uL (130-400); Red Blood Cell Count 4.68 10^6/uL (4.20-5.40); Red Cell Dist. Width 15.6 % (11.5-14.5); White Blood Cell Count 11.5 10^3/uL (4.8-10.8)
[2024-01-07 07:47] LABS: Blood Urea Nitrogen 11 mg/dl (7-17); Calcium 9.2 mg/dl (8.4-10.2); Carbon Dioxide 22 mmol/L (22-30); Chloride 102 mmol/L (98-107); Estimated Creatinine Clearance 55 ml/min; Glucose 111 mg/dl (70-99); Potassium 4.9 mmol/L (3.5-5.1); Sodium 134 mmol/L (135-145); eGFR > 60.00
[2024-01-07] MEDS: CITROMA 300 ML PO (08:45)
[2024-01-07] MEDS: NSS 1000 IV (08:45)
[2024-01-07 11:10] VITALS: BMI 21.1
[2024-01-07] MEDS: TORADOL 10 MG IV ×2 (12:15→20:01)
--- NOTE | 2024-01-07 13:44 | W.PN.GI.CBS2 ---
Today's Communication / Plan
-
IMPRESSION / PLAN:
-Left lower current abdominal pain/constipation
Constipation likely causing the pain. She does have significant amount of stool in the colon.
Reports having significant abdominal pain yesterday but now on the magnesium citrate, moving her bowels.
Once her stool is cleared out, if the pain is better, this is all related to her baseline constipation which is worsened recently.
Discussed with patient that Imodium and narcotics will cause chronic constipation and she should avoid taking Imodium and limit narcotic use.
She does take MiraLAX but only as needed, she will need a good bowel regimen.
MiraLAX 1 capful daily, she can adjust the dose and frequency of MiraLAX based on her bowel pattern.
She also has a component of possible pelvic floor dysfunction, she did go for pelvic floor physical therapy in the past. She follows up with Dr. Mccollum in the office.
Currently on clear liquid diet, will advance as tolerated once abdominal pain is better.
She should be on a gluten-free diet once she is advanced to regular food.
Will follow-up
Assessment / Plan
-
83 year old female with a history of celiac disease, chronic pain (on tramadol), CAD, fatty liver, remote h/o partial colectomy due to diverticulitis, colon polyps and IBS who complains of left-sided abdominal pain for the past 10 days. Pain is
located in the left upper quadrant and feels dull, achy and radiates into left upper/mid back. Bowel movements or food do not affect the pain. No nausea, vomiting, fevers, heartburn, reflux or dysphagia. The pain is worsening in severity since
onset, and this is her 3rd ER visit since 12/31/23 for the same pain. She was evaluated initially on 12/30 with workup including labs (unremarkable) and CT abdomen/pelvis that showed large stool burden, diverticulosis without evidence of acute
diverticulitis, and cholelithiasis. She was discharged home but returned on 01/03 as the pain persisted. She was prescribed Bactrim for possible UTI after initial ER visit, but states she did not take it. CT was repeated, no significant acute
findings. She was again discharged, but as pain worsened she presented again to ER. Pain is unchanged in nature, but feels worse. She is known to our GI practice, sees Dr. Mccollum (formerly Dr. Queen) with a chronic history of IBS with alternating
diarrhea and constipation. She reports having a BM every other day, but often strains. She has celiac disease, diagnosed years ago, and she is compliant with strict gluten-free diet. She takes daily narcotic pain medication (Tramadol or Vicodin) for
her chronic pain and also admits to using Imodium ('I live on Imodium') daily as 'I'm afraid to have diarrhea when I go out.' No rectal bleeding. She had a colonoscopy in 2021 which showed normal mucosa of the colon and terminal ileum, but colon
biopsies did show a nonspecific colitis. There is no family history of colon cancer or IBD.
Labs reviewed: WBC 12.6, hemoglobin 13.8, platelets 552, total bili 0.7, AST 22, ALT 25, alk phos 67, lipase 162. Urinalysis reveals 2+ leukocyte esterase. Urine culture is pending.
IMPRESSION / PLAN:
-Left lower current abdominal pain/constipation
Constipation likely causing the pain. She does have significant amount of stool in the colon.
Reports having significant abdominal pain yesterday but now on the magnesium citrate, moving her bowels.
Once her stool is cleared out, if the pain is better, this is all related to her baseline constipation which is worsened recently.
Discussed with patient that Imodium and narcotics will cause chronic constipation and she should avoid taking Imodium and limit narcotic use.
She does take MiraLAX but only as needed, she will need a good bowel regimen.
MiraLAX 1 capful daily, she can adjust the dose and frequency of MiraLAX based on her bowel pattern.
She also has a component of possible pelvic floor dysfunction, she did go for pelvic floor physical therapy in the past. She follows up with Dr. Mccollum in the office.
Currently on clear liquid diet, will advance as tolerated once abdominal pain is better.
She should be on a gluten-free diet once she is advanced to regular food.
Will follow-up
Subjective
Subjective
Date of Service: January 07, 2024
Patient reports that she has significant abdominal pain yesterday, today she started having some bowel movements and pain is a little better.
Objective
Data Reviewed
Laboratory Data:
Laboratory Results
01/07/24 06:56
01/07/24 06:56
Laboratory Results
Total Bilirubin 0.7 mg/dl (0.2-1.3) 01/06/24 10:11
AST 22 U/L (14-36) 01/06/24 10:11
ALT 25 U/L (0-35) 01/06/24 10:11
Alkaline Phosphatase 67 U/L (38-126) 01/06/24 10:11
Lipase 162 U/L (23-300) 01/06/24 10:11
Vital Signs and I&O:
Vital Signs
Temp Pulse Resp BP Pulse Ox
98.1 F 95 18 162/88 97
01/07/24 07:00 01/07/24 07:00 01/07/24 07:00 01/07/24 07:00 01/07/24 08:45
I&O
01/06/24 01/07/24 01/08/24
06:59 06:59 06:59
Intake Total 240 / 240
Balance 240 / 240
Physical Exam
Physical Exam
GI: Soft, Non Distended and Tender (Discomfort on palpation in the lower abdomen without guarding or rigidity)
--- NOTE | 2024-01-07 14:25 | CM ---
Patient seen bedside, initial assessment completed. Patient resides at [facility]. Patient has a walker at home, denies other DME. Patient reports she has a [employer] [place] twice a week who helps with showering,
denies SNF history. Patient PCP Margarita Key, [facility], confirms prescription coverage. Patient denies insecurities at home. RODRIGUE[facility] form reviewed, refused to sign, placed in chart. CM will continue to follow for all discharge
planning needs.
Plan; home no needs likely.
[2024-01-07] MEDS: PROTONIX 40 MG PO (14:42)
[2024-01-07 15:00] VITALS: BP 130/59
[2024-01-07 23:15] VITALS: BP 142/70
[2024-01-08] MEDS: ULTRAM 50 MG PO (00:37)
[2024-01-08 06:00] VITALS: BMI 20.9
--- NOTE | 2024-01-08 07:13 | W.PN.HOSP.TC ---
Today's Communication/Plan
-
bowel regimen
cont full liquid diet for now
pain control
Assessment / Plan
Assessment / Plan
Physical Exam
General: No acute distress appears comfortable a this time
HEENT: NormoCephalic, Anicteric, Moist mucous membranes and Atraumatic
Respiratory: Clear
Cardiac: S1/S2 and Regular Rhythm; No Murmur or Rub
GI: Soft, Non Distended, Normal Bowel Sounds and nontender; No Distended or Organomegaly
Musculoskeletal: No Clubbing, No Cyanosis and No Edema
Skin: No Rash
Neuro: AO x 3 and Nonfocal/grossly intact
Psych: Calm
83FHX COPD. HLD, constipation Ongoing left sided abd pain for weeks. 3rd visit to ER for abdomen pain. Known to GI Dr. Mccollum.
On 12/30, CT w/ oral and IV showed large amnt stool and WBC 13.1
On 01/03, CT w/ IV showed gallstones, WBC 9.7.
Ongoing left sided abd pain for weeks without clinical peritonism:AXR suspect severe constipation per GI
Fluctuant Leucocytosis of unclear clinical significance with prior HX
Cholelithiasis and/for gallbladder sludge but no clinical signs of acute cholecystitis
Unremarkable Labs such as nl TB, nl LFTs, nl Lipase, nl RFTs
Unremarkable CT AP times 2. No BWO. No diverticulitis
Of note: last colonoscopy in 2021 (Dr Queen)
-Observation for abdominal pain likely d/t severe constipation, significantly improved following bowel movements
-mag citroma as per GI
-GI consult appreciated
-clear liquid diet advanced to full liquid
-scheduled miralax senna colace
Acute intermittent leukocytosis: No fever
Likely reactive
- resolved
HX possible underlying lung disease: was suggest f/u with Pul and OP PFT on last admission
Former smoker
last admission note:
- trial of Duo Nebs made her jittery thus change to Atrovent inhaler upon dc
- No evidence of hypoxia on ambulation
- CT showed possible COPD changes
- Cardiology evaluated and no angina
- no eosinophilia
- no wheezes on exam.
HX CAD/MT x2, RCA LUNA to proximal stent March 2003
01/20/2022: cardiac catheterization - distal to proximal 70% stenosis in the ramus intermedius but too small for PCI
- Medical Rx Toprol Xl, ASA , Lipitor
- HX noncompliant with her Toprol XL due to fatigue
Chronic Back pain/Spinal Stenosis on Chronic oral opiates
Scheduled to have spinal surgery with Dr Olivares end of 04/2022
- OP Pain Meds PRN
Benign HTN
BP stable
- continue metoprolol tartrate
HLD
- Continue atorvastatin
Other PMH:
Lipomas around heart
Celiac disease
Diverticulitis with history of bowel resection
Hiatal hernia
Osteoporosis
DVT Px: SCD due to allergy to Heparin with HX thrombocytopenia
GI ppx protonix while on prn Toradol
Full code
Obs MS
I spent a total of 45 minutes with the patient or on the floor. More than 50% of this time involved counseling and coordination of care.
Anticipated Discharge: 24 - 48 hours
Subjective/Interval History
-
Date of Service: January 08, 2024
Repeat episode of left sided abd pain overnight, less severe compared to prior night per patient but nonetheless significant required prn tramadol to resolve.
Objective Data
-
Labs:
Laboratory Results
01/08/24
06:56
WBC Pending
Hgb Pending
Hct Pending
Plt Count Pending
Sodium Pending
Potassium Pending
Chloride Pending
Carbon Dioxide Pending
BUN Pending
Creatinine Pending
Glucose Pending
Calcium Pending
Vital Signs:
Vital Signs
Temp Pulse Resp BP Pulse Ox
97.7 F 92 18 142/70 97
01/07/24 23:15 01/07/24 23:15 01/07/24 23:15 01/07/24 23:15 01/07/24 23:15
I&O
01/07/24 01/08/24 01/09/24
06:59 06:59 06:59
Intake Total 240 / 240 1859
Balance 240 / 240 1859
[2024-01-08 07:22] LABS: Hematocrit 38.4 % (37.0-47.0); Hemoglobin 13.4 g/dL (12.0-16.0); Mean Corp Hgb Conc. 34.9 g/dL (33.0-37.0); Mean Corpuscular Hgb 28.7 pg (27.0-31.0); Mean Corpuscular Volume 82.2 fL (81.0-99.0); Mean Platelet Volume 9.5 fL (7.4-10.4); Platelet Count 405 10^3/uL (130-400); Red Blood Cell Count 4.67 10^6/uL (4.20-5.40); Red Cell Dist. Width 15.1 % (11.5-14.5); White Blood Cell Count 10.3 10^3/uL (4.8-10.8)
[2024-01-08 07:30] VITALS: BP 155/87
[2024-01-08 07:38] LABS: Blood Urea Nitrogen 8 mg/dl (7-17); Calcium 9.1 mg/dl (8.4-10.2); Carbon Dioxide 18 mmol/L (22-30); Chloride 104 mmol/L (98-107); Estimated Creatinine Clearance 55 ml/min; Glucose 114 mg/dl (70-99); Magnesium 2.5 mg/dl (1.6-2.3); Phosphorus 3.9 mg/dl (2.5-4.5); Potassium 4.4 mmol/L (3.5-5.1); Sodium 133 mmol/L (135-145); eGFR > 60.00
[2024-01-08] MEDS: PROTONIX 40 MG PO (08:07)
[2024-01-08] MEDS: MIRALAX 17 GRAMS PO (08:07)
[2024-01-08 15:30] VITALS: BP 127/59
--- NOTE | 2024-01-08 21:22 | PTCARENOTE ---
Pt reports difficulty sleeping while in the hospital and is requesting a sleeping aid; pt takes ambien 5mg HS at home. [employer] notified, order placed for PRN Ambien 5mg HS.
[2024-01-08] MEDS: AMBIEN 5 MG PO (21:56)
[2024-01-08 23:58] VITALS: BP 128/72
[2024-01-09 06:00] VITALS: BMI 20.7
--- NOTE | 2024-01-09 06:29 | W.PN.HOSP.TC ---
Today's Communication/Plan
-
diet as per GI
monitor abd pain bowel movements
consider repeat imaging if symptoms persist
laxatives switched to prn
pain control
Assessment / Plan
Assessment / Plan
Physical Exam
General: No acute distress appears comfortable a this time
HEENT: NormoCephalic, Anicteric, Moist mucous membranes and Atraumatic
Respiratory: Clear
Cardiac: S1/S2 and Regular Rhythm; No Murmur or Rub
GI: Soft, Non Distended, Normal Bowel Sounds and nontender; No Distended or Organomegaly
Musculoskeletal: No Clubbing, No Cyanosis and No Edema
Skin: No Rash
Neuro: AO x 3 and Nonfocal/grossly intact
Psych: Calm
83FHX COPD. HLD, constipation Ongoing left sided abd pain for weeks. 3rd visit to ER for abdomen pain. Known to GI Dr. Mccollum.
On 12/30, CT w/ oral and IV showed large amnt stool and WBC 13.1
On 01/03, CT w/ IV showed gallstones, WBC 9.7.
Ongoing left sided abd pain for weeks without clinical peritonism:AXR suspect severe constipation per GI
Fluctuant Leucocytosis of unclear clinical significance with prior HX
Cholelithiasis and/for gallbladder sludge but no clinical signs of acute cholecystitis
Unremarkable Labs such as nl TB, nl LFTs, nl Lipase, nl RFTs
Unremarkable CT AP times 2. No BWO. No diverticulitis
Of note: last colonoscopy in 2021 (Dr Queen)
-Observation for abdominal pain likely d/t severe constipation, significantly improved following bowel movements
-mag citroma as per GI
-GI consult appreciated
-clear liquid diet advanced to gluten free
-scheduled miralax senna colace, patient refusing due to diarrhea, discussed w/ patient concern for overflow incontinence, patient nonetheless refusing scheduled laxatives at this time, switched to prn
Acute intermittent leukocytosis: No fever
Likely reactive
- resolved
HX possible underlying lung disease: was suggest f/u with Pul and OP PFT on last admission
Former smoker
last admission note:
- trial of Duo Nebs made her jittery thus change to Atrovent inhaler upon dc
- No evidence of hypoxia on ambulation
- CT showed possible COPD changes
- Cardiology evaluated and no angina
- no eosinophilia
- no wheezes on exam.
HX CAD/GA x2, RCA LUNA to proximal stent March 2003
01/20/2022: cardiac catheterization - distal to proximal 70% stenosis in the ramus intermedius but too small for PCI
- Medical Rx Toprol Xl, ASA , Lipitor
- HX noncompliant with her Toprol XL due to fatigue
Chronic Back pain/Spinal Stenosis on Chronic oral opiates
acute insuff fx's right side sacrum and left pubic bone per obstruction series X-ray 01/05 (denies pelvic pain/ambulating without issues)
Scheduled to have spinal surgery with Dr Olivares end of 04/2022
- OP Pain Meds PRN
Benign HTN
BP stable
- continue metoprolol tartrate
HLD
- Continue atorvastatin
Other PMH:
Lipomas around heart
Celiac disease
Diverticulitis with history of bowel resection
Hiatal hernia
Osteoporosis
DVT Px: SCD due to allergy to Heparin with HX thrombocytopenia
GI ppx protonix while on prn Toradol
Full code
Obs MS
I spent a total of 40 minutes with the patient or on the floor. More than 50% of this time involved counseling and coordination of care.
Anticipated Discharge: 24 - 48 hours
Subjective/Interval History
-
Date of Service: January 09, 2024
reports resolution of constipation abd pain but now reports frequent diarrhea requesting imodium
Objective Data
-
Labs:
Laboratory Results
01/09/24
06:00
WBC Pending
Hgb Pending
Hct Pending
Plt Count Pending
Sodium Pending
Potassium Pending
Chloride Pending
Carbon Dioxide Pending
BUN Pending
Creatinine Pending
Glucose Pending
Calcium Pending
Vital Signs:
Vital Signs
Temp Pulse Resp BP Pulse Ox
97.7 F 94 16 128/72 97
01/08/24 23:58 01/08/24 23:58 01/08/24 23:58 01/08/24 23:58 01/08/24 23:58
I&O
01/07/24 01/08/24 01/09/24
06:59 06:59 06:59
Intake Total 240 / 240 1860 / 1860 1140 / 1140
Balance 240 / 240 1860 / 1860 1140 / 1140
[2024-01-09 07:00] VITALS: BP 117/61
[2024-01-09] MEDS: MIRALAX PO (07:35)
[2024-01-09] MEDS: PROTONIX 40 MG PO (07:35)
[2024-01-09 08:51] LABS: Blood Urea Nitrogen 9 mg/dl (7-17); Calcium 9.4 mg/dl (8.4-10.2); Carbon Dioxide 20 mmol/L (22-30); Chloride 103 mmol/L (98-107); Estimated Creatinine Clearance 55 ml/min; Glucose 101 mg/dl (70-99); Magnesium 2.4 mg/dl (1.6-2.3); Phosphorus 4.7 mg/dl (2.5-4.5); Potassium 5.1 mmol/L (3.5-5.1); Sodium 136 mmol/L (135-145); eGFR > 60.00
[2024-01-09 09:40] LABS: Hematocrit 39.8 % (37.0-47.0); Hemoglobin 13.4 g/dL (12.0-16.0); Mean Corp Hgb Conc. 33.7 g/dL (33.0-37.0); Mean Corpuscular Hgb 28.6 pg (27.0-31.0); Platelet Count 509 10^3/uL (130-400); Red Blood Cell Count 4.68 10^6/uL (4.20-5.40); Red Cell Dist. Width 15.4 % (11.5-14.5); White Blood Cell Count 8.7 10^3/uL (4.8-10.8)
--- NOTE | 2024-01-09 10:14 | W.PN.GI.CBS2 ---
Addendum entered and electronically signed by Ingrid Julian MD 01/09/24 17:51:
I saw and examined the patient.
The DOUGH MIXER or PA's note was reviewed and I agree with the note.
Comment: Patient reports that she did have some abdominal discomfort again and few loose stool and reports taking Imodium.
Currently on gluten-free diet. Explained to the patient that she is constipated and if she continues to take Imodium, this is going to be a cycle and her constipation will get worse. She reports taking Imodium for years
and I again stressed the importance of not taking Imodium. Not sure if patient is going to follow the recommendations as she does not seem to be convinced.
I suggested that she should follow-up with Dr. Mccollum after discharge for her chronic ongoing GI issues and agree with anorectal manometry testing as outpatient.
Original Note:
Today's Communication / Plan
-
pt feeling better about bowel cleanse-- would be concerned for underlying constipation with overflow
cont Miralax in AM and Senna in PM if pt willing to take medication
advance to gluten free diet
stressed to hold off on Imodium as she has been living on Imodium at home
she reports hx anal sphincter surgery 40 years ago -- consider anal manometry testing as outpatient and may benefit from Pelvic floor PT
reviewed with patient with cholelithiasis likely more right sided pain if causing issues
I sent message to arrange GI follow up with Dr. Mccollum after discharge
Assessment / Plan
-
83 year old female with a history of celiac disease, chronic pain (on tramadol), CAD, fatty liver, remote h/o partial colectomy due to diverticulitis, colon polyps and IBS who complains of left-sided abdominal pain for the past 10 days. Pain is
located in the left upper quadrant and feels dull, achy and radiates into left upper/mid back. Bowel movements or food do not affect the pain. This is her 3rd ER visit since 12/31/23 for the same pain. She was evaluated initially on 12/30 with
workup including labs (unremarkable) and CT abdomen/pelvis that showed large stool burden, diverticulosis without evidence of acute diverticulitis, and cholelithiasis. She was discharged home but returned on 01/03 as the pain persisted. She was
prescribed Bactrim for possible UTI after initial ER visit, but states she did not take it. CT was repeated, no significant acute findings. She was again discharged, but as pain worsened she presented again to ER. Pain is unchanged in nature, but
feels worse. She is known to our GI practice, sees Dr. Mccollum (formerly Dr. Queen) with a chronic history of IBS with alternating diarrhea and constipation. She reports having a BM every other day, but often strain. She has celiac disease, diagnosed
years ago, and she is compliant with strict gluten-free diet. She takes daily narcotic pain medication (Tramadol or Vicodin) for her chronic pain and also admits to using Imodium ('I live on Imodium') daily as 'I'm afraid to have diarrhea when I go
out.' No rectal bleeding. She had a colonoscopy in 2021 which showed normal mucosa of the colon and terminal ileum, but colon biopsies did show a nonspecific colitis. There is no family history of colon cancer or IBD. Pt also admits to hx prior
colectomy and anal sphincter surgery 40 years ago.
IMPRESSION / PLAN:
-Left lower current abdominal pain/constipation-- concern for overflow diarrhea
-IBS diarrhea/constipation with incontinence
-hx celiac
-chronic narcotic use
-hx colon resection for twisted colon
-hx anal sphincter surgery 40 + years ago
-cholelithiasis
PLAN:
pt feeling better about bowel cleanse-- would be concerned for underlying constipation with overflow
cont Miralax in AM and Senna in PM if pt willing to take medication
advance to gluten free diet
stressed to hold off on Imodium as she has been living on Imodium at home
she reports hx anal sphincter surgery 40 years ago -- consider anal manometry testing as outpatient and may benefit from Pelvic floor PT
reviewed with patient with cholelithiasis likely more right sided pain if causing issues
I sent message to arrange GI follow up with Dr. Mccollum after discharge
Subjective
Subjective
Date of Service: January 09, 2024
01/08 brown stool, on full liquid diet
Objective
Data Reviewed
Laboratory Data:
Laboratory Results
01/09/24 09:05
01/09/24 07:13
Laboratory Results
Phosphorus 4.7 mg/dl (2.5-4.5) H 01/09/24 07:13
Magnesium 2.4 mg/dl (1.6-2.3) H 01/09/24 07:13
Total Bilirubin 0.7 mg/dl (0.2-1.3) 01/06/24 10:11
AST 22 U/L (14-36) 01/06/24 10:11
ALT 25 U/L (0-35) 01/06/24 10:11
Alkaline Phosphatase 67 U/L (38-126) 01/06/24 10:11
Lipase 162 U/L (23-300) 01/06/24 10:11
Vital Signs and I&O:
Vital Signs
Temp Pulse Resp BP Pulse Ox
98.1 F 80 18 117/61 97
01/09/24 07:00 01/09/24 07:00 01/09/24 07:00 01/09/24 07:00 01/09/24 07:35
I&O
01/08/24 01/09/24 01/10/24
06:59 06:59 06:59
Intake Total 1859 1620 / 1620
Balance 1859 1620 / 1620
Physical Exam
Physical Exam
HEENT: Anicteric and Moist mucous membranes
Cardiology: Normal Sinus Rhythm
Pulmonary: Clear
GI: Soft, Non Distended and Non Tender
Extremities: No Edema
Neuro: Non Focal
--- NOTE | 2024-01-09 12:10 | CM ---
Patient resides at [facility] and plan is to return when stable, per physical therapy patient has no needs, patient reports that she drove herself to the hospital.
Plan; Home no needs, patient to return to [facility] at discharge.
[2024-01-09 15:00] VITALS: BP 112/88
[2024-01-09] MEDS: IMODIUM 2 MG PO (15:04)
[2024-01-09] MEDS: AMBIEN 5 MG PO (22:34)
[2024-01-09 23:32] VITALS: BP 96/51
[2024-01-10] MEDS: ULTRAM PO (04:56)
[2024-01-10] MEDS: ZOFRAN 4 MG IV (04:56)
[2024-01-10] MEDS: TORADOL 10 MG IV (05:01)
[2024-01-10 06:00] VITALS: BMI 20.4
[2024-01-10 07:30] VITALS: BP 101/60
--- NOTE | 2024-01-10 07:45 | W.PN.HOSP.TC ---
Today's Communication/Plan
-
bowel regimen
monitor bowel movements
pain control
Assessment / Plan
Assessment / Plan
Physical Exam
General: No acute distress appears comfortable a this time
HEENT: NormoCephalic, Anicteric, Moist mucous membranes and Atraumatic
Respiratory: Clear
Cardiac: S1/S2 and Regular Rhythm; No Murmur or Rub
GI: Soft, Non Distended, Normal Bowel Sounds and nontender; No Distended or Organomegaly
Musculoskeletal: No Clubbing, No Cyanosis and No Edema
Skin: No Rash
Neuro: AO x 3 and Nonfocal/grossly intact
Psych: Calm
83FHX COPD. HLD, constipation Ongoing left sided abd pain for weeks. 3rd visit to ER for abdomen pain. Known to GI Dr. Mccollum.
On 12/30, CT w/ oral and IV showed large amnt stool and WBC 13.1
On 01/03, CT w/ IV showed gallstones, WBC 9.7.
Ongoing left sided abd pain for weeks without clinical peritonism:AXR suspect severe constipation per GI
Fluctuant Leucocytosis of unclear clinical significance with prior HX
Cholelithiasis and/for gallbladder sludge but no clinical signs of acute cholecystitis
Unremarkable Labs such as nl TB, nl LFTs, nl Lipase, nl RFTs
Unremarkable CT AP times 2. No BWO. No diverticulitis
Of note: last colonoscopy in 2021 (Dr Queen)
-Abd pain likely d/t severe constipation, significantly improved following bowel movements
-reserved mag citroma as per GI
-GI consult appreciated
-clear liquid diet advanced to gluten free
-scheduled miralax, patient accepting at this time.
-prn Levsin as per GI
Acute intermittent leukocytosis: No fever
Likely reactive
- resolved
HX possible underlying lung disease: was suggest f/u with Pul and OP PFT on last admission
Former smoker
last admission note:
- trial of Duo Nebs made her jittery thus change to Atrovent inhaler upon dc
- No evidence of hypoxia on ambulation
- CT showed possible COPD changes
- Cardiology evaluated and no angina
- no eosinophilia
- no wheezes on exam.
HX CAD/DE x2, RCA LUNA to proximal stent March 2003
01/20/2022: cardiac catheterization - distal to proximal 70% stenosis in the ramus intermedius but too small for PCI
- Medical Rx Toprol Xl, ASA , Lipitor
- HX noncompliant with her Toprol XL due to fatigue
Chronic Back pain/Spinal Stenosis on Chronic oral opiates
acute insuff fx's right side sacrum and left pubic bone per obstruction series X-ray 01/05 (denies pelvic pain/ambulating without issues)
Scheduled to have spinal surgery with Dr Olivares end of 04/2022
- OP Pain Meds PRN
Benign HTN
BP stable
- continue metoprolol tartrate
HLD
- Continue atorvastatin
Other PMH:
Lipomas around heart
Celiac disease
Diverticulitis with history of bowel resection
Hiatal hernia
Osteoporosis
DVT Px: SCD due to allergy to Heparin with HX thrombocytopenia
GI ppx protonix while on prn Toradol
Full code
Obs MS
I spent a total of 35 minutes with the patient or on the floor. More than 50% of this time involved counseling and coordination of care.
Anticipated Discharge: Within 24 hours
Subjective/Interval History
-
Date of Service: January 10, 2024
Diarrhea resolved following once Imodium. Patient however developed repeat episode left sided abd pain later in the evening.
Objective Data
-
Labs:
Laboratory Results
01/10/24
07:16
WBC Pending
Hgb Pending
Hct Pending
Plt Count Pending
Sodium Pending
Potassium Pending
Chloride Pending
Carbon Dioxide Pending
BUN Pending
Creatinine Pending
Glucose Pending
Calcium Pending
Vital Signs:
Vital Signs
Temp Pulse Resp BP Pulse Ox
98.1 F 86 18 96/51 96
01/09/24 23:32 01/09/24 23:32 01/09/24 23:32 01/09/24 23:32 01/09/24 23:32
I&O
01/09/24 01/10/24 01/11/24
06:59 06:59 06:59
Intake Total 1620 / 1620 1440 / 1440
Balance 1620 / 1620 1440 / 1440
[2024-01-10] MEDS: PROTONIX 40 MG PO (07:50)
[2024-01-10 08:17] LABS: Hematocrit 38.8 % (37.0-47.0); Mean Corp Hgb Conc. 33.5 g/dL (33.0-37.0); Mean Corpuscular Hgb 28.8 pg (27.0-31.0); Mean Corpuscular Volume 85.8 fL (81.0-99.0); Mean Platelet Volume 9.2 fL (7.4-10.4); Platelet Count 506 10^3/uL (130-400); Red Blood Cell Count 4.52 10^6/uL (4.20-5.40); Red Cell Dist. Width 15.6 % (11.5-14.5); White Blood Cell Count 8.5 10^3/uL (4.8-10.8)
[2024-01-10 09:23] LABS: Blood Urea Nitrogen 12 mg/dl (7-17); Calcium 9.4 mg/dl (8.4-10.2); Carbon Dioxide 20 mmol/L (22-30); Chloride 105 mmol/L (98-107); Estimated Creatinine Clearance 47 ml/min; Glucose 113 mg/dl (70-99); Magnesium 2.2 mg/dl (1.6-2.3); Phosphorus 4.6 mg/dl (2.5-4.5); Potassium 4.8 mmol/L (3.5-5.1); Sodium 139 mmol/L (135-145); eGFR > 60.00
[2024-01-10] MEDS: MIRALAX 17 GRAMS PO (12:17)
--- NOTE | 2024-01-10 13:34 | W.PN.GI.CBS2 ---
Today's Communication / Plan
-
pt feeling better about bowel cleanse-- would be concerned for underlying constipation with overflow
episode of pain last PM now improved
will add Levsin PRN
encouraged to cont Miralax daily and hold Imodium
cont gluten free diet
pt concerned celiac playing a role will check follow up celiac serologies
consider anal manometry testing as outpatient and may benefit from Pelvic floor PT if any incontinence issues after discharge
discussed if still not improving would consider colonoscopy to assess anastomosis
message sent to arrange GI follow up with Dr. Mccollum after discharge
Assessment / Plan
-
83 year old female with a history of celiac disease, chronic pain (on tramadol), CAD, fatty liver, remote h/o partial colectomy due to diverticulitis, colon polyps and IBS who complains of left-sided abdominal pain for the past 10 days. Pain is
located in the left upper quadrant and feels dull, achy and radiates into left upper/mid back. Bowel movements or food do not affect the pain. This is her 3rd ER visit since 12/31/23 for the same pain. She was evaluated initially on 12/30 with
workup including labs (unremarkable) and CT abdomen/pelvis that showed large stool burden, diverticulosis without evidence of acute diverticulitis, and cholelithiasis. She was discharged home but returned on 01/03 as the pain persisted. She was
prescribed Bactrim for possible UTI after initial ER visit, but states she did not take it. CT was repeated, no significant acute findings. She was again discharged, but as pain worsened she presented again to ER. Pain is unchanged in nature, but
feels worse. She is known to our GI practice, sees Dr. Mccollum (formerly Dr. Queen) with a chronic history of IBS with alternating diarrhea and constipation. She reports having a BM every other day, but often strain. She has celiac disease, diagnosed
years ago, and she is compliant with strict gluten-free diet. She takes daily narcotic pain medication (Tramadol or Vicodin) for her chronic pain and also admits to using Imodium ('I live on Imodium') daily as 'I'm afraid to have diarrhea when I go
out.' No rectal bleeding. She had a colonoscopy in 2021 which showed normal mucosa of the colon and terminal ileum, but colon biopsies did show a nonspecific colitis. There is no family history of colon cancer or IBD. Pt also admits to hx prior
colectomy and anal sphincter surgery 40 years ago.
IMPRESSION / PLAN:
-Left lower current abdominal pain/constipation-- concern for overflow diarrhea
-IBS diarrhea/constipation with incontinence
-hx celiac
-chronic narcotic use
-hx colon resection for twisted colon
-hx anal sphincter surgery 40 + years ago
-cholelithiasis
PLAN:
pt feeling better about bowel cleanse-- would be concerned for underlying constipation with overflow
episode of pain last PM now improved
will add Levsin PRN
encouraged to cont Miralax daily and hold Imodium
cont gluten free diet
pt concerned celiac playing a role will check follow up celiac serologies
consider anal manometry testing as outpatient and may benefit from Pelvic floor PT if any incontinence issues after discharge
discussed if still not improving would consider colonoscopy to assess anastomosis
message sent to arrange GI follow up with Dr. Mccollum after discharge
Subjective
Subjective
Date of Service: January 10, 2024
still with episode of pain last PM left sided lasted a few hours , on gluten free diet
Objective
Data Reviewed
Laboratory Data:
Laboratory Results
01/10/24 07:16
01/10/24 07:16
Laboratory Results
Phosphorus 4.6 mg/dl (2.5-4.5) H 01/10/24 07:16
Magnesium 2.2 mg/dl (1.6-2.3) 01/10/24 07:16
Total Bilirubin 0.7 mg/dl (0.2-1.3) 01/06/24 10:11
AST 22 U/L (14-36) 01/06/24 10:11
ALT 25 U/L (0-35) 01/06/24 10:11
Alkaline Phosphatase 67 U/L (38-126) 01/06/24 10:11
Lipase 162 U/L (23-300) 01/06/24 10:11
Vital Signs and I&O:
Vital Signs
Temp Pulse Resp BP Pulse Ox
97.7 F 94 18 101/60 99
01/10/24 07:30 01/10/24 07:30 01/10/24 07:30 01/10/24 07:30 01/10/24 07:50
I&O
01/09/24 01/10/24 01/11/24
06:59 06:59 06:59
Intake Total 1620 / 1620 1440 / 1440
Balance 1620 / 1620 1440 / 1440
Physical Exam
Physical Exam
HEENT: Anicteric and Moist mucous membranes
Cardiology: Normal Sinus Rhythm
Pulmonary: Clear
GI: Soft, Non Distended and Non Tender
Extremities: No Edema
Neuro: Non Focal
--- NOTE | 2024-01-10 15:17 | CM ---
Patient to return to home to independent living at [facility], patient switched to inpatient, patient made aware.
Plan; Patient to return to independent living at [facility].
[2024-01-10 15:38] VITALS: BP 109/59
[2024-01-10] MEDS: AMBIEN 5 MG PO (22:49)
[2024-01-10 23:12] VITALS: BP 104/53
[2024-01-11] MEDS: ULTRAM 50 MG PO (05:44)
[2024-01-11] MEDS: ZOFRAN 4 MG IV (05:44)
[2024-01-11 06:00] VITALS: BMI 20.7
[2024-01-11 07:20] VITALS: BP 130/70
[2024-01-11 08:38] LABS: Hematocrit 38.8 % (37.0-47.0); Hemoglobin 13.1 g/dL (12.0-16.0); Mean Corp Hgb Conc. 33.8 g/dL (33.0-37.0); Mean Corpuscular Hgb 29.4 pg (27.0-31.0); Mean Platelet Volume 9.9 fL (7.4-10.4); Platelet Count 442 10^3/uL (130-400); Red Blood Cell Count 4.46 10^6/uL (4.20-5.40); Red Cell Dist. Width 15.5 % (11.5-14.5); White Blood Cell Count 9.8 10^3/uL (4.8-10.8)
[2024-01-11] MEDS: PROTONIX 40 MG PO (09:03)
[2024-01-11] MEDS: MIRALAX PO (09:04)
[2024-01-11 09:16] LABS: Blood Urea Nitrogen 12 mg/dl (7-17); Carbon Dioxide 21 mmol/L (22-30); Chloride 101 mmol/L (98-107); Estimated Creatinine Clearance 47 ml/min; Glucose 113 mg/dl (70-99); Magnesium 2.2 mg/dl (1.6-2.3); Phosphorus 4.8 mg/dl (2.5-4.5); Potassium 5.2 mmol/L (3.5-5.1); Sodium 139 mmol/L (135-145); eGFR > 60.00
--- NOTE | 2024-01-11 09:20 | W.PN.HOSP.TC ---
Addendum entered and electronically signed by Genaro Dorsey MD 01/11/24 14:54:
Possible pelvic fractures noted on recent imaging unclear if true, not noted on CT taken few days prior, further patient completely asymptomatic with regards to pelvic pain ambulating at baseline without issues. Follow up X-ray in one month
recommended. Discussed with patient
Original Note:
Today's Communication/Plan
-
discharge
Assessment / Plan
Assessment / Plan
Physical Exam
General: No acute distress appears comfortable a this time
HEENT: NormoCephalic, Anicteric, Moist mucous membranes and Atraumatic
Respiratory: Clear
Cardiac: S1/S2 and Regular Rhythm; No Murmur or Rub
GI: Soft, Non Distended, Normal Bowel Sounds and nontender; No Distended or Organomegaly
Musculoskeletal: No Clubbing, No Cyanosis and No Edema
Skin: No Rash
Neuro: AO x 3 and Nonfocal/grossly intact
Psych: Calm
83FHX COPD. HLD, constipation Ongoing left sided abd pain for weeks. 3rd visit to ER for abdomen pain. Known to GI Dr. Mccollum.
On 12/30, CT w/ oral and IV showed large amnt stool and WBC 13.1
On 01/03, CT w/ IV showed gallstones, WBC 9.7.
Ongoing left sided abd pain for weeks without clinical peritonism:AXR suspect severe constipation per GI
Fluctuant Leucocytosis of unclear clinical significance with prior HX
Cholelithiasis and/for gallbladder sludge but no clinical signs of acute cholecystitis
Unremarkable Labs such as nl TB, nl LFTs, nl Lipase, nl RFTs
Unremarkable CT AP times 2. No BWO. No diverticulitis
Of note: last colonoscopy in 2021 (Dr Queen)
-Abd pain likely d/t severe constipation, significantly improved following bowel movements
-reserved mag citroma as per GI
-GI consult appreciated
-clear liquid diet advanced to gluten free
-scheduled miralax
-prn Levsin as per GI
Acute intermittent leukocytosis: No fever
Likely reactive
- resolved
HX possible underlying lung disease: was suggest f/u with Pul and OP PFT on last admission
Former smoker
last admission note:
- trial of Duo Nebs made her jittery thus change to Atrovent inhaler upon dc
- No evidence of hypoxia on ambulation
- CT showed possible COPD changes
- Cardiology evaluated and no angina
- no eosinophilia
- no wheezes on exam.
HX CAD/[place] x2, RCA LUNA to proximal stent March 2003
01/20/2022: cardiac catheterization - distal to proximal 70% stenosis in the ramus intermedius but too small for PCI
- Medical Rx Toprol Xl, ASA , Lipitor
- HX noncompliant with her Toprol XL due to fatigue
Chronic Back pain/Spinal Stenosis on Chronic oral opiates
acute insuff fx's right side sacrum and left pubic bone per obstruction series X-ray 01/05 (denies pelvic pain/ambulating without issues)
Scheduled to have spinal surgery with Dr Olivares end of 04/2022
- OP Pain Meds PRN
Benign HTN
BP stable
- continue metoprolol tartrate
HLD
- Continue atorvastatin
Other PMH:
Lipomas around heart
Celiac disease
Diverticulitis with history of bowel resection
Hiatal hernia
Osteoporosis
DVT Px: SCD due to allergy to Heparin with HX thrombocytopenia
GI ppx protonix while on prn Toradol
Full code
Medically stable for discharge home with outpatient follow up recommendations.
Total Time Preparing Discharge __50 minutes including examination of the patient, summary of the hospital stay, instructions for continuing care to all relevant caregivers; and preparation of discharge records, prescriptions, and referral
forms if necessary.
Anticipated Discharge: Today
Subjective/Interval History
-
Date of Service: January 11, 2024
Seen and examined at bedside in no acute distress sitting up comfortably in bed. Pain controlled at this time. Eager to go home.
Objective Data
-
Labs:
Laboratory Results
01/11/24
07:39
WBC 9.8
Hgb 13.1
Hct 38.8
Plt Count 442 H
Sodium 139
Potassium 5.2 H
Chloride 101
Carbon Dioxide 21 L
BUN 12
Creatinine 0.7
Glucose 113 H
Calcium 10.0
Vital Signs:
Vital Signs
Temp Pulse Resp BP Pulse Ox
97.6 F 85 16 130/70 95
01/11/24 07:20 01/11/24 07:20 01/11/24 07:20 01/11/24 07:20 01/11/24 07:20
I&O
01/10/24 01/11/24 01/12/24
06:59 06:59 06:59
Intake Total 1440 / 1440 960 / 960
Balance 1440 / 1440 960 / 960
--- NOTE | 2024-01-11 11:19 | CM ---
business transformation manager reviewed patient's chart and plan is for patient to return to home when stable, no needs.
Plan; Patient to return to [facility] when stable.
[2024-01-11 11:28] LABS: tTG IgA Antibody 6.6 EU/ml (0-19); tTG IgG Antibody 12.7 EU/ml (0-19)
[2024-01-11] MEDS: TYLENOL 1000 MG PO (12:48)
--- NOTE | 2024-01-11 14:29 | W.PN.GI.CBS2 ---
Today's Communication / Plan
-
continued improvement
reviewed with continue miralax on discharge daily
again advised to hold Imodium -- review if she need restart would use very low dose
cont Levsin PRN - reviewed may be sedating with use
cont gluten free diet celiac panel stable so far so no gluten contamination
consider anal manometry testing as outpatient and may benefit from Pelvic floor PT if any incontinence issues after discharge -- has been stable last few days after clean out likely more overflow isssue
discussed if still not improving would consider colonoscopy to assess anastomosis
message sent to arrange GI follow up with Dr. Mccollum after discharge --
all questions answered call with continued issues
stable from GI for discharge
Assessment / Plan
-
83 year old female with a history of celiac disease, chronic pain (on tramadol), CAD, fatty liver, remote h/o partial colectomy due to diverticulitis, colon polyps and IBS who complains of left-sided abdominal pain for the past 10 days. Pain is
located in the left upper quadrant and feels dull, achy and radiates into left upper/mid back. Bowel movements or food do not affect the pain. This is her 3rd ER visit since 12/31/23 for the same pain. She was evaluated initially on 12/30 with
workup including labs (unremarkable) and CT abdomen/pelvis that showed large stool burden, diverticulosis without evidence of acute diverticulitis, and cholelithiasis. She was discharged home but returned on 01/03 as the pain persisted. She was
prescribed Bactrim for possible UTI after initial ER visit, but states she did not take it. CT was repeated, no significant acute findings. She was again discharged, but as pain worsened she presented again to ER. Pain is unchanged in nature, but
feels worse. She is known to our GI practice, sees Dr. Mccollum (formerly Dr. Queen) with a chronic history of IBS with alternating diarrhea and constipation. She reports having a BM every other day, but often strain. She has celiac disease, diagnosed
years ago, and she is compliant with strict gluten-free diet. She takes daily narcotic pain medication (Tramadol or Vicodin) for her chronic pain and also admits to using Imodium ('I live on Imodium') daily as 'I'm afraid to have diarrhea when I go
out.' No rectal bleeding. She had a colonoscopy in 2021 which showed normal mucosa of the colon and terminal ileum, but colon biopsies did show a nonspecific colitis. There is no family history of colon cancer or IBD. Pt also admits to hx prior
colectomy and anal sphincter surgery 40 years ago.
IMPRESSION / PLAN:
-Left lower current abdominal pain/constipation-- concern for overflow diarrhea
-IBS diarrhea/constipation with incontinence
-hx celiac
-chronic narcotic use
-hx colon resection for twisted colon
-hx anal sphincter surgery 40 + years ago
-cholelithiasis
PLAN:
continued improvement
reviewed with continue miralax on discharge daily
again advised to hold Imodium -- review if she need restart would use very low dose
cont Levsin PRN - reviewed may be sedating with use
cont gluten free diet celiac panel stable so far so no gluten contamination
consider anal manometry testing as outpatient and may benefit from Pelvic floor PT if any incontinence issues after discharge -- has been stable last few days after clean out likely more overflow isssue
discussed if still not improving would consider colonoscopy to assess anastomosis
message sent to arrange GI follow up with Dr. Mccollum after discharge --
all questions answered call with continued issues
Subjective
Subjective
Date of Service: January 11, 2024
01/08 peters stool on gluten free diet feeling better slight left sided pain but much improved
Objective
Data Reviewed
Laboratory Data:
Laboratory Results
01/11/24 07:39
01/11/24 07:39
Laboratory Results
Phosphorus 4.8 mg/dl (2.5-4.5) H 01/11/24 07:39
Magnesium 2.2 mg/dl (1.6-2.3) 01/11/24 07:39
Total Bilirubin 0.7 mg/dl (0.2-1.3) 01/06/24 10:11
AST 22 U/L (14-36) 01/06/24 10:11
ALT 25 U/L (0-35) 01/06/24 10:11
Alkaline Phosphatase 67 U/L (38-126) 01/06/24 10:11
Lipase 162 U/L (23-300) 01/06/24 10:11
Vital Signs and I&O:
Vital Signs
Temp Pulse Resp BP Pulse Ox
97.6 F 85 16 130/70 95
01/11/24 07:20 01/11/24 07:20 01/11/24 07:20 01/11/24 07:20 01/11/24 07:20
I&O
01/10/24 01/11/24 01/12/24
06:59 06:59 06:59
Intake Total 1440 / 1440 960 / 960
Balance 1440 / 1440 960 / 960
Physical Exam
Physical Exam
HEENT: Anicteric and Moist mucous membranes
Cardiology: Normal Sinus Rhythm
Pulmonary: Clear
GI: Soft, Non Distended and Tender (minimal left sided )
Extremities: No Edema
Neuro: Non Focal
--- NOTE | 2024-01-11 14:43 | W.DCSUMMARY ---
Discharge Summary
Discharge Data
Date of Admission: 01/08/24
Date of Discharge: 01/11/24
-
Pending Results: Yes
Additional Pending Results:
celiac serologies to be followed with GI
Discharge Plan
-
Patient Disposition: Home (Routine Discharge)
Discharge Diagnosis/Procedures: Abdomen Pain suspected due to severe constipation
History Celiac disease
Mild Hyperkalemia
Possible Pelvic Fractures noted on X-ray (not correlated clinically, asymptomatic)
Mild Thrombocytosis, resolving
Condition: Fair
Diet: Other diet
Additional Diets: Gluten Free diet, 4g potassium restricted diet (ok to discontinue potassium restriction if outpatient repeat BMP in 1 week notes resolution mild hyperkalemia)
Activity: As tolerated
Driving Restrictions: As prior to admission
Bathing Restrictions: None
Blood Work: Please repeat CBC and BMP with primary care provider in 1 week of discharge.
Others Tests: Repeat Abd/pelvis X-ray with primary care provider in 1 month of discharge.
Activity Restrictions/Additional Instructions:
Follow up with primary care provider in 1 week of discharge and GI in 2-4 weeks
Scheduled evening Miralax has been prescribed for likely severe constipation contributing to abdomen pain. Ok to hold if diarrhea or regular bowel movements noted during the day.
Tylenol prescribed for mild pain, available over the counter.
Zofran prescribed as needed for nausea/vomiting.
It is recommended that you limit your imodium use to once a day as needed. If possible, avoid entirely given concern possible severe constipation contributing to your abd pain discomfort.
Please take medications as prescribed/recommended and follow up with primary care provider and/or other healthcare provider involved in your care for refills and/or further adjustment to your medication regimen as necessary.
Referrals:
Petra Mccollum MD [Active] - in two to four weeks (call [phone] to arrange GI follow up-- call to review celiac serologies done during admission)
Margarita Key MD [Family Provider] - in one week
Prescriptions:
New
polyethylene glycol 3350 [HealthyLax] 17 gram Powder In Packet
17 g PO QPM Qty: 30 0RF
Rx Instructions:
hold if diarrhea or regular bowel movements during day
acetaminophen 325 mg Tablet
650 mg PO Q6HPRN PRN (Reason: mild pain/JACOB/temp> 100.4F) Qty: 60 0RF
ondansetron 4 mg tablet,disintegrating
4 mg PO Q8H PRN (Reason: nausea and vomiting) Qty: 10 0RF
Continued
atorvastatin 40 MG tablet
40 mg PO QPM
aspirin 81 MG tablet,chewable
81 mg PO QPM
zolpidem [Ambien] 5 mg Tablet
5 mg PO HSPRN PRN (Reason: sleep)
tramadol 50 mg Tablet
50 mg PO BIDPRN PRN (Reason: moderate severe pain) Qty: 0 0RF
Changed
loperamide 2 mg Tablet
2 mg PO DAILYPRN PRN (Reason: diarrhea) Qty: 0 0RF
Discharge Orders:
Discharge Patient (As Directed); Ordered 01/11/24
Ordered By: Genaro Dorsey
Discharge Date and Time
Print Language: POLISH
[2024-01-11 14:44] VITALS: BP 126/63
--- NOTE | 2024-01-11 17:05 | PTCARENOTE ---
Went over discharge instructions with patient. Answered any questions that she had, encouraged follow-up.
[2024-01-11 23:27] LABS: IgA 311 mg/dl (70-400)
== END 2024-01-11 17:10 | disposition home or self-care (01) | DRG 392 ==
LOC: 4 WEST ACU 14:08
PROVIDERS: Nurse Practitioner Adult Health; ADMITTING PHYSICIAN Internal Medicine; ATTENDING PHYSICIAN Internal Medicine; CONSULT PHYSICIAN Internal Medicine Gastroenterology; EMERGENCY PHYSICIAN Emergency Medicine; FAMILY PHYSICIAN Internal Medicine
DX: K58.1 Irritable bowel syndrome with constipation (principal); E11.9 Type 2 diabetes mellitus without complications; I10 Essential (primary) hypertension; K76.0 Fatty (change of) liver, not elsewhere classified; K44.9 Diaphragmatic hernia without obstruction or gangrene; D75.839 Thrombocytosis, unspecified; E78.00 Pure hypercholesterolemia, unspecified; E87.5 Hyperkalemia; F41.9 Anxiety disorder, unspecified; G89.29 Other chronic pain; I25.10 Atherosclerotic heart disease of native coronary artery without angina pectoris; I25.2 Old myocardial infarction; Z95.5 Presence of coronary angioplasty implant and graft; Z87.01 Personal history of pneumonia (recurrent); J98.4 Other disorders of lung; K21.9 Gastro-esophageal reflux disease without esophagitis; K80.20 Calculus of gallbladder without cholecystitis without obstruction; K90.0 Celiac disease; K57.30 Diverticulosis of large intestine without perforation or abscess without bleeding; M81.0 Age-related osteoporosis without current pathological fracture; D17.79 Benign lipomatous neoplasm of other sites; M48.00 Spinal stenosis, site unspecified; M43.10 Spondylolisthesis, site unspecified; Z79.82 Long term (current) use of aspirin; Z79.891 Long term (current) use of opiate analgesic; Z79.899 Other long term (current) drug therapy; Z87.891 Personal history of nicotine dependence; Z87.19 Personal history of other diseases of the digestive system; Z90.49 Acquired absence of other specified parts of digestive tract; Z86.0100 Personal history of colon polyps, unspecified; Z86.718 Personal history of other venous thrombosis and embolism; Z88.0 Allergy status to penicillin; Z88.1 Allergy status to other antibiotic agents; Z88.5 Allergy status to narcotic agent; Z88.8 Allergy status to other drugs, medicaments and biological substances; Z90.710 Acquired absence of both cervix and uterus; Z96.641 Presence of right artificial hip joint
CPT/HCPCS: 74022; 80048; 80053; 81003; 81015; 82784; 83516; 83690; 83735; 84100; 85025; 85027; 86231; 87045; 87046; 87086; 87324; 87427; 87449; 93005; 96374; 96375; 99285

== ENCOUNTER → 2024-05-11 08:13 | Outpatient (REF) | payer MEDICARE, OTHER, SELFPAY ==
[2024-05-11 09:16] LABS: % Basophils 1.1 % (0-2); % Eosinophils 4.6 % (0-6); % Immature Granulocytes 0.2 % (0-0.5); % Lymphocytes 24.9 % (20.5-51.1); % Monocytes 8.6 % (1.7-9.3); % Neutrophils 60.6 % (42.2-75.2); Absolute Basophils 0.1 10^3/uL (0-0.2); Absolute Eosinophils 0.4 10^3/uL (0-0.7); Absolute Lymphocytes 2.2 10^3/uL (1.2-3.4); Absolute Monocytes 0.8 10^3/uL (0.1-0.6); Absolute Neutrophils 5.4 10^3/uL (1.4-6.5); Hematocrit 40.5 % (37.0-47.0); Hemoglobin 12.9 g/dL (12.0-16.0); Mean Corp Hgb Conc. 31.9 g/dL (33.0-37.0); Mean Corpuscular Hgb 29.4 pg (27.0-31.0); Mean Corpuscular Volume 92.3 fL (81.0-99.0); Mean Platelet Volume 9.7 fL (7.4-10.4); Nucleated Red Blood Cells % 0 %; Platelet Count 555 10^3/uL (130-400); Red Blood Cell Count 4.39 10^6/uL (4.20-5.40); Red Cell Dist. Width 14.7 % (11.5-14.5); White Blood Cell Count 8.9 10^3/uL (4.8-10.8)
[2024-05-11 09:59] LABS: ALT (SGPT) 30 U/L (0-35); AST (SGOT) 29 U/L (14-36); Albumin 4.4 g/dl (3.5-5.0); Alkaline Phosphatase 76 U/L (38-126); Blood Urea Nitrogen 13 mg/dl (7-17); Calcium 9.7 mg/dl (8.4-10.2); Carbon Dioxide 24 mmol/L (22-30); Chloride 106 mmol/L (98-107); Glucose 118 mg/dl (70-99); Iron 134 ug/dl (37-170); Potassium 4.6 mmol/L (3.5-5.1); Sodium 139 mmol/L (135-145); Total Bilirubin 0.9 mg/dl (0.2-1.3); Total Cholesterol 303 mg/dl (50-199); Total Protein 7.1 g/dl (6.3-8.2); Triglyceride 162 mg/dl (10-149); Very Low Density Lipoprotein 32 mg/dl (0-30); eGFR > 60.00
[2024-05-11 10:09] LABS: Percent Saturation 42 % (20-50); Total Iron Binding Capacity 315 ug/dl (265-497)
[2024-05-11 10:12] LABS: HDL Cholesterol 188 mg/dl; LDL Cholesterol, Calculated 83 mg/dl
[2024-05-11 10:26] LABS: TSH Reflex To Free T4 3.38 uIU/ml (0.47-4.68)
[2024-05-11 10:30] LABS: Ferritin 16.6 ng/ml (11.1-264.0)
[2024-05-11 10:42] LABS: Glycohemoglobin (HgbA1c) 6.3 % (4.0-5.6)
== END ==
LOC: REG 08:13
PROVIDERS: ATTENDING PHYSICIAN Internal Medicine; FAMILY PHYSICIAN Internal Medicine Hematology & Oncology
DX: I10 Essential (primary) hypertension (principal); E11.59 Type 2 diabetes mellitus with other circulatory complications; R73.03 Prediabetes; R06.09 Other forms of dyspnea; K76.0 Fatty (change of) liver, not elsewhere classified; E78.00 Pure hypercholesterolemia, unspecified; R53.83 Other fatigue; I82.409 Acute embolism and thrombosis of unspecified deep veins of unspecified lower extremity; D50.9 Iron deficiency anemia, unspecified; D75.9 Disease of blood and blood-forming organs, unspecified; D72.829 Elevated white blood cell count, unspecified
CPT/HCPCS: 36415; 80053; 80061; 82728; 83036; 83540; 83550; 84443; 85025

== ENCOUNTER → 2024-06-06 12:38 | Outpatient (REF) | payer MEDICARE, OTHER, SELFPAY | LOC: RAD 12:38 | PROVIDERS: ATTENDING PHYSICIAN Internal Medicine Gastroenterology; FAMILY PHYSICIAN Internal Medicine | DX: K58.9 Irritable bowel syndrome, unspecified (principal) | CPT/HCPCS: 74019 ==

== ENCOUNTER → 2024-07-30 07:27 | Outpatient (REF) | payer MEDICARE, OTHER, SELFPAY | LOC: HWRCS 07:27 | PROVIDERS: ATTENDING PHYSICIAN Physician Assistant; FAMILY PHYSICIAN Internal Medicine | DX: R06.09 Other forms of dyspnea (principal); I25.10 Atherosclerotic heart disease of native coronary artery without angina pectoris; I10 Essential (primary) hypertension; E78.5 Hyperlipidemia, unspecified; E11.59 Type 2 diabetes mellitus with other circulatory complications; M21.371 Foot drop, right foot | CPT/HCPCS: 78452; 93017; A9500; J2785 ==

== ENCOUNTER → 2024-08-23 13:41 | Outpatient (REF) | payer MEDICARE, OTHER, SELFPAY | LOC: WDC 13:41 | PROVIDERS: ATTENDING PHYSICIAN Internal Medicine | DX: Z12.31 Encounter for screening mammogram for malignant neoplasm of breast (principal) | CPT/HCPCS: 77063; 77067 ==

== ENCOUNTER → 2024-08-27 07:21 | Outpatient (REF) | payer MEDICARE, OTHER, SELFPAY ==
[2024-08-27 08:31] LABS: ALT (SGPT) 24 U/L (0-35); AST (SGOT) 24 U/L (14-36); Albumin 4.3 g/dl (3.5-5.0); Alkaline Phosphatase 69 U/L (38-126); Blood Urea Nitrogen 12 mg/dl (7-17); Calcium 9.7 mg/dl (8.4-10.2); Carbon Dioxide 24 mmol/L (22-30); Chloride 111 mmol/L (98-107); Glucose 120 mg/dl (70-99); Potassium 4.7 mmol/L (3.5-5.1); Sodium 144 mmol/L (135-145); Total Bilirubin 0.6 mg/dl (0.2-1.3); Total Cholesterol 304 mg/dl (50-199); Total Protein 7.4 g/dl (6.3-8.2); Triglyceride 206 mg/dl (10-149); Very Low Density Lipoprotein 41 mg/dl (0-30); eGFR > 60.00
[2024-08-27 08:42] LABS: HDL Cholesterol 168 mg/dl; LDL Cholesterol, Calculated 95 mg/dl
[2024-08-27 10:49] LABS: Glycohemoglobin (HgbA1c) 6.6 % (4.0-5.6)
== END ==
LOC: REG 07:21
PROVIDERS: ATTENDING PHYSICIAN Internal Medicine
DX: E11.59 Type 2 diabetes mellitus with other circulatory complications (principal); E88.89 Other specified metabolic disorders; I25.10 Atherosclerotic heart disease of native coronary artery without angina pectoris; I10 Essential (primary) hypertension; F51.01 Primary insomnia; F41.1 Generalized anxiety disorder; E78.00 Pure hypercholesterolemia, unspecified
CPT/HCPCS: 36415; 80053; 80061; 83036

== ENCOUNTER → 2024-10-02 13:54 | Outpatient (REF) | payer MEDICARE, OTHER, SELFPAY | LOC: HWRAD 13:54 | PROVIDERS: ATTENDING PHYSICIAN Internal Medicine | DX: E04.2 Nontoxic multinodular goiter (principal) | CPT/HCPCS: 76536 ==

== ENCOUNTER → 2024-11-19 09:17 | Outpatient (REF) | payer MEDICARE, OTHER, SELFPAY ==
[2024-11-19 10:50] LABS: Hematocrit 40.0 % (37.0-47.0); Hemoglobin 13.0 g/dL (12.0-16.0); Mean Corp Hgb Conc. 32.5 g/dL (33.0-37.0); Mean Corpuscular Volume 89.9 fL (81.0-99.0); Platelet Count 566 10^3/uL (130-400); Red Cell Dist. Width 15.5 % (11.5-14.5)
[2024-11-19 11:10] LABS: Iron 91 ug/dl (37-170)
[2024-11-19 11:20] LABS: Total Iron Binding Capacity 289 ug/dl (265-497)
[2024-11-19 11:46] LABS: Ferritin 18.9 ng/ml (11.1-264.0)
[2024-11-21 15:43] LABS: tTG IgA Antibody 6.5 EU/ml (0-19); tTG IgG Antibody 16.1 EU/ml (0-19)
== END ==
LOC: REG 09:17
PROVIDERS: ATTENDING PHYSICIAN Internal Medicine Gastroenterology; FAMILY PHYSICIAN Internal Medicine
DX: K90.0 Celiac disease (principal); D50.9 Iron deficiency anemia, unspecified; K58.9 Irritable bowel syndrome, unspecified
CPT/HCPCS: 36415; 82728; 82784; 83516; 83540; 83550; 85027; 86231

== ENCOUNTER → 2024-11-28 11:28 | Outpatient (REF) | payer MEDICARE, OTHER, SELFPAY ==
[2024-11-28 13:08] LABS: ALT (SGPT) 25 U/L (0-35); AST (SGOT) 24 U/L (14-36); Albumin 4.1 g/dl (3.5-5.0); Alkaline Phosphatase 72 U/L (38-126); Blood Urea Nitrogen 9 mg/dl (7-17); Calcium 9.5 mg/dl (8.4-10.2); Carbon Dioxide 26 mmol/L (22-30); Chloride 109 mmol/L (98-107); Glucose 102 mg/dl (70-99); Potassium 4.6 mmol/L (3.5-5.1); Sodium 139 mmol/L (135-145); Total Protein 7.1 g/dl (6.3-8.2); Very Low Density Lipoprotein 30 mg/dl (0-30); eGFR > 60.00
[2024-11-28 13:25] LABS: Glycohemoglobin (HgbA1c) 6.4 % (4.0-5.6)
[2024-11-28 13:31] LABS: HDL Cholesterol 167 mg/dl; LDL Cholesterol, Calculated 124 mg/dl
== END ==
LOC: REG 11:28
PROVIDERS: ATTENDING PHYSICIAN Internal Medicine
DX: R73.03 Prediabetes (principal); I10 Essential (primary) hypertension; E78.5 Hyperlipidemia, unspecified
CPT/HCPCS: 36415; 80053; 80061; 83036

== ENCOUNTER → 2024-12-21 08:54 | Outpatient (REF) | payer MEDICARE, OTHER, SELFPAY | LOC: RST 08:54 | PROVIDERS: ATTENDING PHYSICIAN Otolaryngology; FAMILY PHYSICIAN Internal Medicine | DX: R13.19 Other dysphagia (principal) | CPT/HCPCS: 74230; 92611 ==

== ENCOUNTER 2025-01-10 06:17 | Day surgery (SDC) | payer MEDICARE, OTHER, SELFPAY | END 2025-01-10 10:03 | disposition home or self-care (01) | LOC: GI 06:17 | PROVIDERS: ATTENDING PHYSICIAN Internal Medicine Gastroenterology; FAMILY PHYSICIAN Internal Medicine | DX: R13.10 Dysphagia, unspecified (principal); R12 Heartburn; K22.2 Esophageal obstruction | CPT/HCPCS: 43220 ==